=== PATIENT | female | born 1990 | race Caucasian/White ===

== ENCOUNTER 2025-08-06 16:05 | Emergency (ER) | payer BC, SELFPAY ==
--- OUTSIDE RECORDS SUMMARY | 2025-08-06 10:00 | XMS_ITS | Encounter Summary ---
Author Organization [facility] Address [address] [facility] [place] [address] Care Team Providers Care Army Ranger Name Role Phone Asha Harris ADJUNCT PSYCHOLOGY PROFESSOR-INSULATION PACKER Unavailable [phone] Reason for Visit * Reason Onset Date Comments Routine Visit Imm Inj 08/06/2025 Encounter Details Date Type Department Care Team (Late st Contact Info) Description 08/06/2025 10:00 AM REEL CUTTER visit [facility] - CIVIL ENGINEERING PROFESSOR [address] [place] [address], [address] [phone] Nathaly Severino MD [address] [place] [phone] [place]: 25w4d Social History Tobacco Use Types Packs/Day Years Used Date Smoking Tobacco: Never Passive Smoke Exposure: Never Smokeless Tobacco: Never Alcohol Use Standard Drinks/Week Comments Never 0 (1 standard drink = 0.6 oz pur e alcohol) AUDIT-C Answer Date Recorded Q1: How often do you have a drink containing alcohol? Never 08/23/2023 Q2: How many drinks containi ng alcohol do you have on a typical day when you are drinking? Patient does not drink Q3: How often do you have si x or more drinks on one occasion? Never 08/23/2023 Overall Financial Resource Strain (CARDIA) Answe r Date Recorded How hard is it for you to pa y for the very basics like food, housing, medical care, and heating? Not hard at all 08/22/2023 PHQ-2 Answer Date Recorded Patient Health Questionnaire-2 Score 0 08/06/2025 [facility] [place] of Occupat ional Health - Occupational Stress Questionnaire Answer Date Recorded Do you feel stress - tense, restless, nervous, or anxious, or unable to sleep at night because your mind is troubled all the time - these days? Not at all 08/22/2023 Hunger Vital Sign Answer Date Recorded Within the past 12 months, y ou worried that your food would run out before you got the money to buy more. Never true 08/22/20 23 Within the past 12 months, t he food you bought just didn't last and you didn't have money to get more. Never true 08/22/2023 PRAPARE - Transportation Answer Date Re corded In the past 12 months, has l ack of transportation kept you from medical appointments or from getting medications? No 02/2023 In the past 12 months, has l ack of transportation kept you from meetings, work, or from getting things needed for daily living? No 08/22/2023 Housing Stability Vital Sign Answer Giancarlo e Recorded In the last 12 months, was t here a time when you were not able to pay the mortgage or rent on time? No 08/22/2023 In the last 12 months, how many places have you lived? 2 08/22/2023 In the last 12 months, was t here a time when you did not have a steady place to sleep or slept in a usp (including now)? No 08/22/2023 [place] Depression Scale Answer Date Recorded [place] Depression Scale Total 0 08/24/2023 The thought of harming myself has occurred to me . Never 08/24/2023 Estimated Date of Delivery Comme nts Yes 11/15/2025 Based on Ultraso und Sex and Gender Information Value Date Recorded Sex Assigned at Not on file Legal Sex Female 12:55 PM REEL CUTTER Gender Identity Not on file Sexual Orientation Not on file documented as of this encounter Last Filed Vital Signs Vital Sign Reading Time Taken Comments Blood Pressure 128/64 08/06/2025 10:06 AM REEL CUTTER Pulse - - Temperature - - Respiratory Rate - - Oxygen Saturation - - Inhaled Oxygen Concentration - - Weight 67.8 kg (149 lb 6.4 oz) 08/06/2025 10:06 AM REEL CUTTER Height - - Body Mass Index 23.4 04/16/2025 2:17 PM CDT documented in this encounter Functional Status * Is person deaf or have serious hearing difficulty? Answer Date of Assessment Author No 08/22/2023 11:45 PM Merna Blanco Graduate Nurse * Is person blind or have serious difficulty seeing? Answer Date of Assessment Author No 08/22/2023 11:45 PM Merna Blanco Graduate Nurse * Does person have serious difficulty walking/climbing stairs? Answer Date of Assessment Author No 08/22/2023 11:45 PM Merna Blanco Graduate Nurse * Does person have difficulty dressing/bathing? Answer Date of Assessment Author No 08/22/2023 11:45 PM Merna Blanco Graduate Nurse * Does person have difficulty doing errands alone? Answer Date of Assessment Author No 08/22/2023 11:45 PM Merna Blanco Graduate Nurse * Over the past 2 weeks, how often have you been bothered by any of the following problems? Question Answer Date of Assessment Author Little interest or pleasure in doing things Not at all 08/06/2025 10:05 AM Batsheva Templeton Feeling down, depressed, or hopeless Not at all 08/06/2025 10:05 AM Batsheva Templeton Patient Health Questionnaire -2 Score 0 08/06/2025 10:05 AM Batsheva Templeton documented as of this encounter Mental Status * Does person have difficulty concentrating/remembering/making decisions? Answer Entry Date Author No 08/22/2023 11:45 PM Merna Blanco Graduate Nurse documented in this encounter Progress Notes * Batsheva Aguero - 08/06/2025 10:51 AM CST Flu screening checklist was reviewed with the patient. VIS was given prior to administration. Injection site aseptically cleansed and injection given per Immunization(s) protocol. See Imm/Injections activity for details. CUTTER * Nathaly Severino MD - 08/06/2025 10:11 AM CST Visit 08/06/25 S: Parris Chow is a 35 year old @ 25w4d Today she notes doing well. Notes RLS symptoms - had with last and improved with Venofer.Still having some nausea around bed time, Has medications though states not needing to take. Has been taking synthroid in AM on empty stomach with PNV at lunch. She denies contractions, bleeding, loss of fluid. She is feeling normal movement. O: Vitals: 08/06/25 1006 BP: 128/64 Weight: 67.8 kg (149 lb 6.4 oz) Total weight gain in : 7.439 kg (16 lb 6.4 oz) FHT/FH see flowsheets A/P: Parris Chow is a 35 year old at 25w4d with: Supervision of Datinw sonogram A+/I/-/-, HIV NR, HCV NR Antibody screen: negative Gc/Chl: negx2 Urine culture: negative Pap: 01/2023 NILM/HPV neg Genetic screening: NIPT: LR male Carrier screening: declines 3T labs and GCT at 28 weeks Tdap at 28 weeks Influenza vaccine: 08/06 GBS at 36-37 weeks MOF: continue to discuss MOC: continue to discuss Service Delivery Management Consultant: Delivery/ plan: discuss in 3T Ultrasounds: Anatomy complete - AGA Hypothyroidism Required synthroid in previous - did not continue as lost to f/u 04/16 TSH 8.2, fT4 0.94 > synthroid 75 mcg started 04/20 > TSH 2.9 (07/09 - was taking synthroidsuboptimally) TFTs today Iron deficiency, h/o anemia Venofer infusions planned Will recheck CBC/Fe studies after completion NVOP Declines antiemetics Has phenergan/Zofran PRN H/o SGA Serial growth US this - next with next visit Return to office in 4 weeks Nathaly Severino MD 08/06/2025 10:12 AM CUTTER documented in this encounter Plan of Treatment Upcoming Encounters Date Type Department Care Team (Late st Contact Info) Description 08/14/2025 10:30 AM REEL CUTTER Appointment [facility] [address] [place] [address] Nathaly Severino MD [facility] [address] [phone] 09/03/2025 8:30 AM REEL CUTTER OBGYN RADIOLOGY [facility] - CIVIL ENGINEERING PROFESSOR [address] [place] [address], [address] [phone] 09/03/2025 9:15 AM REEL CUTTER visit [facility] - CIVIL ENGINEERING PROFESSOR [address] [place] [phone] Nathaly Severino MD [facility] [address] [phone] documented as of this encounter Visit Diagnoses Diagnosis Need for prophylactic vaccination and inoculation against influenza- Primary documented in this encounter Care Teams Army Ranger Relationship Specialty Start Date End Date Asha Harris, ADJUNCT PSYCHOLOGY PROFESSOR-INSULATION PACKER [address] [place] [address] PCP - Attributed-BCBS Medicaid [place] 06/17/22 documented as of this encounter
--- OUTSIDE RECORDS SUMMARY | 2025-08-06 10:00 | XMS_ITS | Encounter Summary ---
Author Organization [facility] Address [address] [facility] [place] [address] Care Team Providers Care Floor Tech Name Role Phone Asha Harris AIRLINE SECURITY REPRESENTATIVE-WATER MANAGER Unavailable [phone] Reason for Visit * Reason Onset Date Comments Routine Visit Imm Inj 08/06/2025 Encounter Details Date Type Department Care Team (Late st Contact Info) Description 08/06/2025 10:00 AM HOG BUYER visit [facility] - DATA ENTRY SPECIALIST [address] [place] [address], [address] [address] Nathaly Severino MD [address] [place] [phone] [place]: 25w4d Social History Tobacco Use [...] Recorded Patient Health Questionnaire-2 Score 0 08/06/2025 [facility] [place] of Occupat ional Health - Occupational Stress [...] place to sleep or slept in a correction (including now)? No 08/22/2023 [place] Depression Scale Answer Date Recorded [place] Depression Scale Total 0 08/24/2023 The thought of harming myself has occurred to me . Never 08/24/2023 Estimated Date of Delivery Comme nts Yes 11/15/2025 Based on Ultraso und Sex and Gender Information Value Date Recorded Sex Assigned at Not on file Legal Sex Female 12:55 PM HOG BUYER Gender Identity Not on file Sexual Orientation Not on file documented as of this encounter Last Filed Vital Signs Vital Sign Reading Time Taken Comments Blood Pressure 128/64 08/06/2025 10:06 AM HOG BUYER Pulse - - Temperature - - Respiratory Rate - - Oxygen Saturation - - Inhaled Oxygen Concentration - - Weight 67.8 kg (149 lb 6.4 oz) 08/06/2025 10:06 AM HOG BUYER Height - - Body Mass Index 23.4 [...] Immunization(s) protocol. See Imm/Injections activity for details. BUYER * Nathaly Severino MD - 08/06/2025 10:11 [...] continue to discuss MOC: continue to discuss Associate Theatre Professor: Delivery/ plan: discuss in 3T Ultrasounds: Anatomy [...] weeks Nathaly Severino MD 08/06/2025 10:12 AM BUYER documented in this encounter Plan of Treatment Upcoming Encounters Date Type Department Care Team (Late st Contact Info) Description 08/14/2025 10:30 AM HOG BUYER Appointment [facility] [address] [place] [address] Nathaly Severino MD [facility] [address] [phone] 09/03/2025 8:30 AM HOG BUYER OBGYN RADIOLOGY [facility] - DATA ENTRY SPECIALIST [address] [place] [address], [address] [phone] 09/03/2025 9:15 AM HOG BUYER visit [facility] - DATA ENTRY SPECIALIST [address] [place] [phone] Nathaly Severino MD [facility] [address] [phone] documented as of this encounter Visit Diagnoses Diagnosis Need for prophylactic vaccination and inoculation against influenza- Primary documented in this encounter Care Teams Floor Tech Relationship Specialty Start Date End Date Asha Harris, AIRLINE SECURITY REPRESENTATIVE-WATER MANAGER [address] [place] [address] PCP - Attributed-BCBS Medicaid [place] 06/17/22 documented as of this encounter
--- OUTSIDE RECORDS SUMMARY | 2025-08-06 11:20 | XMS_ITS | Encounter Summary ---
Author Organization [facility] Address [address] [place] [address] Care Team Providers Care Industrial Engineering Name Role Phone Asha Harris FORENSICS ANALYST-EMPLOYMENT SECURITY OFFICER Unavailable [phone] Reason for Visit * Oncology Prior Authorization (Routine) - Authorized Specialty Diagnoses / Procedures Referred By Contac t Referred To Contact Diagnoses Iron deficiency anemia during (HCC) Procedures [place] IRON SUCROSE INJECTION Nathaly Severino MD [facility] [address] [address] Phone: tel: fax: Nathaly Severino MD [facility] [address] [address] Phone: tel: fax: Referral ID Status Reason Start Date Expiration Date V isits Requested Visits Authorized [id number] Authorized 07/24/2025 09/16/2025 1 3 Encounter Details Date Type Department Care Team (Late st Contact Info) Description 08/06/2025 11:20 AM AWNING CRAFTSPERSON Hospital Encounter [facility] [address] [facility] [address] [place] [address] Nathaly Severino MD [facility] [address] [phone] RN CALL CENTER Social History Tobacco Use Types Packs/Day Years [...] Recorded Patient Health Questionnaire-2 Score 0 08/06/2025 [facility] of Occupat ional Health - Occupational Stress [...] place to sleep or slept in a custodial (including now)? No 08/22/2023 [place] Depression Scale Answer Date Recorded [place] Depression Scale Total 0 08/24/2023 The thought of harming myself has occurred to me . Never 08/24/2023 Estimated Date of Delivery Comme nts Yes 11/15/2025 Based on Ultraso und Sex and Gender Information Value Date Recorded Sex Assigned at Not on file Legal Sex Female 12:55 PM AWNING CRAFTSPERSON Gender Identity Not on file Sexual Orientation Not on file documented as of this encounter Last Filed Vital Signs Vital Sign Reading Time Taken Comments Blood Pressure - - Pulse 76 08/06/2025 12:03 PM AWNING CRAFTSPERSON Temperature 36.3 C (97.4 F) 08/06/2025 12:03 PM AWNING CRAFTSPERSON Respiratory Rate 16 08/06/2025 12:03 PM AWNING CRAFTSPERSON Oxygen Saturation 100% 08/06/2025 12:03 PM AWNING CRAFTSPERSON Inhaled Oxygen Concentration - - Weight - - Height - - Body Mass Index - - documented in this encounter Functional Status * Is person deaf or have serious hearing difficulty? Answer Date of Assessment Author No 08/22/2023 11:45 PM AWNING CRAFTSPERSON Merna Patten Graduate Nurse * Is person blind or have serious difficulty seeing? Answer Date of Assessment Author No 08/22/2023 11:45 PM AWNING CRAFTSPERSON Merna Patten Graduate Nurse * Does person have serious [...] Entry Date Author No 08/22/2023 11:45 PM AWNING CRAFTSPERSON Merna Patten bby, Graduate Nurse documented in this encounter Progress Notes * Leatha Fleming RN - 08/06/2025 2:32 PM CST Parris Chow 1990 Patient completed scheduled Venofer [address] [facility]. Please call with any questions [phone]. Pt was observed for 30 minutes following the completion of the iron infusion. Pt noted no problems or questions. Vital signs stable. Pulse 76 Temp 97.4 ??F (36.3 ??C) Resp 16 SpO2 100% Medications iron sucrose (Venofer) 300 mg in NaCl IV 0.9 % 285 mL IVPB (0 mg Intravenous Stopped 08/06/25 1355) 0.9% NaCl injection 1-40 mL (10 mL Intracatheter $ Given 08/06/25 1356) NG CRAFTSPERSON documented in this encounter Plan of Treatment Upcoming Encounters Date Type Department Care Team (Late st Contact Info) Description 08/14/2025 10:30 AM AWNING CRAFTSPERSON Appointment [facility] [address] [place] [address] Nathaly Severino MD [address] [place] [phone] 09/03/2025 8:30 AM AWNING CRAFTSPERSON OBGYN RADIOLOGY [facility] - RN CALL CENTER [address] [place] [phone] 09/03/2025 9:15 AM AWNING CRAFTSPERSON visit [facility] - RN CALL CENTER [address] [place] [phone] Nathaly Severino MD [address] [place] [phone] documented as of this encounter Visit Diagnoses Diagnosis Iron deficiency anemia during (HCC)- Primary documented in this encounter Administered Medications Active Administered Medications - up to 3 most recent administrations Medication Order MAR Action Action Date Dose Rate Site 0.9% NaCl injection 1-40 mL 1-40 mL, Intracatheter, PRN, other, vascular access device flush, Starting on Aliza 08/06/25 at 1210, Until Sun08/07/25 at 0009, For Port-a-Cath, Central Line, and PICC, flush with 10ml prior to and after each use and flush with 20ml after blood draws.Indications:Iron deficiency anemia during (HCC) $ Given 08/06/2025 1:56 PM AWNING CRAFTSPERSON 10 mL iron sucrose (Venofer) 300 mg in NaCl IV 0.9 % 285 mL IVPB 300 mg, at 190 mL/hr, Intravenous, DIRECTED, 3 doses, Starting on Aliza 08/06/25 at 1210, Until Discontinued, Observe for signs and symptoms of hypersensitivity during and after iron sucrose administration for at least 30 minutes and until clinically stable following completion of each administration.Indications:I anastacio deficiency anemia during (HCC) $ New Bag/Syringe 08/06/2025 12:25 PM AWNING CRAFTSPERSON 300 mg 190 mL/hr documented in this encounter Care Teams Industrial Engineering Relationship Specialty Start Date End Date Asha Harris APRN-EMPLOYMENT SECURITY OFFICER [address] [place], [place] [phone] PCP - Attributed-BCBS Medicaid [place] 06/17/22 documented as of this encounter
--- OUTSIDE RECORDS SUMMARY | 2025-08-06 11:20 | XMS_ITS | Encounter Summary ---
Author Organization [facility] Address [address] [facility] [place] [address] Care Team Providers Care Sales Technician Home Theater Name Role Phone Asha Harris PRIVACY SPECIALIST-BILLING REPRESENTATIVE Unavailable [phone] Reason for Visit * Oncology Prior Authorization (Routine) - Authorized Specialty Diagnoses / Procedures Referred By Contac t Referred To Contact Diagnoses Iron deficiency anemia during (HCC) Procedures [place] IRON SUCROSE INJECTION Nathaly Severino MD [facility] [address] [address] Phone: tel: fax: Nathaly Severino MD [facility] [address] [address] Phone: tel: fax: Referral ID Status Reason Start Date Expiration Date V isits Requested Visits Authorized [id number] Authorized 07/24/2025 09/16/2025 1 3 Encounter Details Date Type Department Care Team (Late st Contact Info) Description 08/06/2025 11:20 AM ROBOTICS TECHNOLOGIST Hospital Encounter [facility] [address] [facility] [address] [place] [address] Nathaly Severino MD [facility] [address] [address] PRE ASSEMBLY WIRER Social History Tobacco Use Types Packs/Day Years [...] Recorded Patient Health Questionnaire-2 Score 0 08/06/2025 [facility] of Occupat ional Health - Occupational Stress [...] place to sleep or slept in a assisted (including now)? No 08/22/2023 [place] Depression Scale Answer Date Recorded [place] Depression Scale Total 0 08/24/2023 The thought of harming myself has occurred to me . Never 08/24/2023 Estimated Date of Delivery Comme nts Yes 11/15/2025 Based on Ultraso und Sex and Gender Information Value Date Recorded Sex Assigned at Not on file Legal Sex Female 12:55 PM ROBOTICS TECHNOLOGIST Gender Identity Not on file Sexual Orientation Not on file documented as of this encounter Last Filed Vital Signs Vital Sign Reading Time Taken Comments Blood Pressure - - Pulse 76 08/06/2025 12:03 PM ROBOTICS TECHNOLOGIST Temperature 36.3 C (97.4 F) 08/06/2025 12:03 PM ROBOTICS TECHNOLOGIST Respiratory Rate 16 08/06/2025 12:03 PM ROBOTICS TECHNOLOGIST Oxygen Saturation 100% 08/06/2025 12:03 PM ROBOTICS TECHNOLOGIST Inhaled Oxygen Concentration - - Weight - - Height - - Body Mass Index - - documented in this encounter Functional Status * Is person deaf or have serious hearing difficulty? Answer Date of Assessment Author No 08/22/2023 11:45 PM ROBOTICS TECHNOLOGIST Merna Patten Graduate Nurse * Is person blind or have serious difficulty seeing? Answer Date of Assessment Author No 08/22/2023 11:45 PM ROBOTICS TECHNOLOGIST Merna Patten Graduate Nurse * Does person [...] Entry Date Author No 08/22/2023 11:45 PM ROBOTICS TECHNOLOGIST Merna Patten bby, Graduate Nurse documented in this encounter Progress Notes * Leatha Fleming RN - 08/06/2025 2:32 PM CST Parris Chow 1990 Patient completed scheduled Venofer 300 at [facility]. Please call with any questions [phone]. Pt was observed for 30 minutes following [...] (10 mL Intracatheter $ Given 08/06/25 1356) TICS TECHNOLOGIST documented in this encounter Plan of Treatment Upcoming Encounters Date Type Department Care Team (Late st Contact Info) Description 08/14/2025 10:30 AM ROBOTICS TECHNOLOGIST Appointment [facility] [address] [place] [address] Nathaly Severino MD [address] [place] [phone] 09/03/2025 8:30 AM ROBOTICS TECHNOLOGIST OBGYN RADIOLOGY [facility] - PRE ASSEMBLY WIRER [address] [place] [phone] 09/03/2025 9:15 AM ROBOTICS TECHNOLOGIST visit [facility] - PRE ASSEMBLY WIRER [address] [place] [phone] Nathaly Severino MD [address] [place] [phone] documented as of this encounter Visit [...] during (HCC) $ Given 08/06/2025 1:56 PM ROBOTICS TECHNOLOGIST 10 mL iron sucrose (Venofer) 300 mg [...] (HCC) $ New Bag/Syringe 08/06/2025 12:25 PM ROBOTICS TECHNOLOGIST 300 mg 190 mL/hr documented in this encounter Care Teams Sales Technician Home Theater Relationship Specialty Start Date End Date Asha Harris APRN-BILLING REPRESENTATIVE [address] [place], [place] [phone] PCP - Attributed-BCBS Medicaid [place] 06/17/22 documented as of this encounter
[2025-08-06 16:19] VITALS: BP 126/75; PULSE 81; RESP 18; TEMP 36.6; O2SAT 100
--- NOTE | 2025-08-06 16:42 | ECG_ITS ---
Test Date: 2025-08-06 17:42:06 Measurements Intervals [place] Rate: 64 P: 55 [place]: 165 QRS: 58 QRSD: 88 T: 31 QT: 402 QTc: 416 Interpretive Statements SINUS RHYTHM NORMAL ELECTROCARDIOGRAM No previous ECG available for comparison Electronically Signed On 08-07-2025 07:51:31 WHITEWATER RAFTING GUIDE by Jasmeet Rosales M.D.
--- NOTE | 2025-08-06 16:42 | ED.WEAKNESS ---
HPI - Weakness General Chief complaint: Weakness <DILLON De Luna Last Filed: 08/06/25 16:44> Stated complaint: numbness in legs and arms <DILLON De Luna Last Filed: 08/06/25 16:44> Time Seen by Provider: 08/06/25 16:42 <DILLON De Luna Last Filed: 08/06/25 16:44> Focused HPI: Patient is a 35-year-old female who presents the ED with report of weakness of her extremities. Patient reports she had a flu shot today around 10 30. She then received an iron infusion around 2. She has received these in the past. Notes history of frequent anemia, particularly while . She is currently 25 weeks gestation. States around 230-3 p.m., she began feeling weak throughout her lower extremities. States it has progressed to her upper extremities. She states her arms and legs feel very heavy and tingly. States it is the same bilaterally. Patient denies abdominal pain or vaginal bleeding. Is still feeling baby move. GENERAL: Well-appearing, well-nourished, and in no acute distress. HEAD: Normocephalic, atraumatic. CHEST: Clear to auscultation. ?No respiratory distress. HEART: Regular rate and rhythm.? NEURO: ?Alert and oriented x3. Strength 4/5 in upper and lower extremities bilaterally. Symmetric bilaterally. Strong octave board racker strength bilaterally. No appreciable pronator drift Patient screened in triage and initial orders placed.? ?Additional care and disposition to be based upon?diagnostic testing and treatment. <DILLON De Luna Last Filed: 08/06/25 16:44> Source: patient <DILLON De Luna Last Filed: 08/06/25 16:44> Mode of arrival: ambulatory <DILLON De Luna Last Filed: 08/06/25 16:44> Limitations: no limitations <DILLON De Luna Last Filed: 08/06/25 16:44> History of Present Illness HPI Narrative: Agree with above HPI. <MARYJANE Ac Last Filed: 08/06/25 22:41> Related Data Allergies/Adverse reactions: Allergies Allergy/AdvReac Type Severity Reaction Status Date / Time Penicillins Allergy Unknown Rash Verified 08/06/25 19:44 <Yojana Weaver PA-C - Last Filed: 08/06/25 16:44> Review of Systems Review of Systems: All systems reviewed & are unremarkable except as noted in HPI and below <MARYJANE Ac - Last Filed: 08/06/25 22:41> Exam Narrative: GENERAL: Well-appearing, well-nourished, and in no acute distress. HEAD: Normocephalic, atraumatic. EYES: PERRLA and EOMI. ENT: Nares clear, no rhinorrhea or epistaxis. Mucous membranes moist. Oropharynx without tonsillar hypertrophy exudate or other lesions. Bilateral TMs pearly asif non-bulging NECK: Supple. No adenopathy or masses. No carotid bruits or JVD CHEST: Clear to auscultation. No respiratory distress. No wheezes rales or rhonchi HEART: Regular rate and rhythm. No murmur heard. Normal peripheral pulses. ABDOMEN: Soft, nontender, nondistended, normal active bowel sounds. EXTREMITIES: Normal range of motion. No edema. SKIN: Warm, dry, no rash. NEURO: A&O X3. Speech clear. Follows commands. CN II-XII intact. Sensation grossly intact. Steady gait. No ataxic movements. Strength 5/5 in upper and lower extremities bilaterally. [id number] testing intact bilaterally. No pronator drift. PSYCH: Normal mood and affect <MARYJANE Ac - Last Filed: 08/06/25 22:41> Course Vital Signs Vital signs: Vital Signs Temperature 97.8 F 08/06/25 16:19 Pulse Rate 81 08/06/25 16:19 Respiratory Rate 18 08/06/25 16:19 Blood Pressure 126/75 08/06/25 16:19 Pulse Oximetry 100 08/06/25 16:19 Oxygen Delivery Room Air 08/06/25 16:19 Temperature 97.8 F 08/06/25 16:19 Pulse Rate 73 08/06/25 21:31 Respiratory Rate 14 08/06/25 21:31 Blood Pressure 119/63 08/06/25 21:31 Pulse Oximetry 98 08/06/25 21:31 Oxygen Delivery Room Air 08/06/25 18:40 <Yojana Weaver PA-C - Last Filed: 08/06/25 16:44> Vital Signs Temperature 97.8 F 08/06/25 16:19 Pulse Rate 81 08/06/25 16:19 Respiratory Rate 18 08/06/25 16:19 Blood Pressure 126/75 08/06/25 16:19 Pulse Oximetry 100 08/06/25 16:19 Oxygen Delivery Room Air 08/06/25 16:19 Temperature 97.8 F 08/06/25 16:19 Pulse Rate 73 08/06/25 21:31 Respiratory Rate 14 08/06/25 21:31 Blood Pressure 119/63 08/06/25 21:31 Pulse Oximetry 98 08/06/25 21:31 Oxygen Delivery Room Air 08/06/25 18:40 <MARYJANE Ac Last Filed: 08/06/25 22:41> MDM - Weakness MDM Narrative Medical decision making narrative: MSE by AMINATA in triage <Yojana Weaver PA-C - Last Filed: 08/06/25 16:44> MSE by AMINATA in triage Patient is a 35-year-old female who presents the ED with report of weakness of her extremities. Patient reports she had a flu shot today around 10 30. She then received an iron infusion around 2. She has received these in the past. Notes history of frequent anemia, particularly while . She is currently 25 weeks gestation. States around 230-3 p.m., she began feeling weak throughout her lower extremities. States it has progressed to her upper extremities. She states her arms and legs feel very significant and tingly. States it is the same bilaterally. Upon my initial assessment sitting comfortably in bed reporting that her symptoms have vastly improved. Neuro exam intact with much improvement in extremity strength. Patient is not exhibiting any other signs of allergic reaction including no shortness of breath, tongue swelling, or trouble swallowing. Labs and EKG are without significant high-risk changes. Patient reports that she is feeling plenty of movement. heart rate 159. Fluids administered. All questions were answered to the patient's satisfaction. The patient is appropriate for outpatient treatment and follow-up. Given reasons to return. <MARYJANE Ac - Last Filed: 08/06/25 22:41> Medical Records Attestation: I reviewed the patient's medical records. <MARYJANE Ac - Last Filed: 08/06/25 22:41> Lab Data Attestation: I reviewed the patient's lab results. <MARYJANE Ac - Last Filed: 08/06/25 22:41> Result diagrams: 08/06/25 17:04 08/06/25 17:04 <Yojana Weaver PA-C - Last Filed: 08/06/25 16:44> Labs: Lab Results 08/06/25 Range/Units 17:04 WBC 10.1 H (4.5-10.0) K/mm3 RBC 3.50 L (4.2-5.4) M/mm3 Hgb 10.3 L (12.0-15.0) g/dL Hct 30.3 L (37.0-47.0) % MCV 86.6 (80-100) fl MCH 29.4 (26-34) pg MCHC 34.0 (32-36) g/dl RDW 12.9 (11.5-14.5) % Plt Count 323 (150-375) k/mm3 MPV 10.3 (7.4-10.4) fl Immature Gran % (Auto) 0.8 H (0-0.5) % Neut % (Auto) 68.0 (45.5-73.1) % Lymph % (Auto) 21.3 (18.3-44.2) % [place] % (Auto) 8.7 H (2.6-8.5) % Eos % (Auto) 0.7 (0-4.4) % Baso % (Auto) 0.5 (0.2-1.2) % Lymph # (Auto) 2.16 (0.9-3.2) K/mm3 [place] # (Auto) 0.9 H (0.1-0.6) K/mm3 Eos # (Auto) 0.1 (0-0.3) K/mm3 Baso # (Auto) 0.1 (0.0-0.1) K/mm3 Abs Immat Gran (auto) 0.08 H (0.00-0.031) K/mm3 Absolute Neuts (auto) 6.9 H (1.3-6.7) K/mm3 Absolute Nucleated RBC 0.000 (0.0-0.012) K/mm3 Nucleated RBC % 0.0 (0.0-0.2) % PT 13.0 (11.1-14.7) Seconds INR 1.0 APTT 30.0 (22.3-36.8) Seconds Sodium 133 L (137-145) mmol/L Potassium 3.8 (3.4-5.0) mmol/L Chloride 104 (98-107) mmol/L Carbon Dioxide 21 L (22-30) mmol/L Anion Gap 8 (4-12) mmol/L BUN 8 (7-17) mg/dL Creatinine 0.55 L (0.7-1.0) mg/dL Estim Creat Clear Calc 119 ml/min Estimated GFR > 60 (59 - ) Glucose 92 (65-110) mg/dL Lactic Acid 0.9 (0.7-2.0) mmol/L Calcium 8.5 (8.4-10.2) mg/dL Magnesium 1.8 (1.6-2.3) mg/dL Total Bilirubin 0.6 (0.2-1.3) mg/dL AST 23 (14-36) U/L ALT 12 (6-35) U/L Alkaline Phosphatase 84 (38-126) U/L Total Creatine Kinase 64 (30-135) U/L Total Protein 7.3 (6.3-8.2) g/dL Albumin 3.8 (3.5-5.1) g/dL <Yojana Weaver PA-C - Last Filed: 08/06/25 16:44> Lab Results 08/06/25 Range/Units 17:04 WBC 10.1 H (4.5-10.0) K/mm3 RBC 3.50 L (4.2-5.4) M/mm3 Hgb 10.3 L (12.0-15.0) g/dL Hct 30.3 L (37.0-47.0) % MCV 86.6 (80-100) fl MCH 29.4 (26-34) pg MCHC 34.0 (32-36) g/dl RDW 12.9 (11.5-14.5) % Plt Count 323 (150-375) k/mm3 MPV 10.3 (7.4-10.4) fl Immature Gran % (Auto) 0.8 H (0-0.5) % Neut % (Auto) 68.0 (45.5-73.1) % Lymph % (Auto) 21.3 (18.3-44.2) % [place] % (Auto) 8.7 H (2.6-8.5) % Eos % (Auto) 0.7 (0-4.4) % Baso % (Auto) 0.5 (0.2-1.2) % Lymph # (Auto) 2.16 (0.9-3.2) K/mm3 [place] # (Auto) 0.9 H (0.1-0.6) K/mm3 Eos # (Auto) 0.1 (0-0.3) K/mm3 Baso # (Auto) 0.1 (0.0-0.1) K/mm3 Abs Immat Gran (auto) 0.08 H (0.00-0.031) K/mm3 Absolute Neuts (auto) 6.9 H (1.3-6.7) K/mm3 Absolute Nucleated RBC 0.000 (0.0-0.012) K/mm3 Nucleated RBC % 0.0 (0.0-0.2) % PT 13.0 (11.1-14.7) Seconds INR 1.0 APTT 30.0 (22.3-36.8) Seconds Sodium 133 L (137-145) mmol/L Potassium 3.8 (3.4-5.0) mmol/L Chloride 104 (98-107) mmol/L Carbon Dioxide 21 L (22-30) mmol/L Anion Gap 8 (4-12) mmol/L BUN 8 (7-17) mg/dL Creatinine 0.55 L (0.7-1.0) mg/dL Estim Creat Clear Calc 119 ml/min Estimated GFR > 60 (59 - ) Glucose 92 (65-110) mg/dL Lactic Acid 0.9 (0.7-2.0) mmol/L Calcium 8.5 (8.4-10.2) mg/dL Magnesium 1.8 (1.6-2.3) mg/dL Total Bilirubin 0.6 (0.2-1.3) mg/dL AST 23 (14-36) U/L ALT 12 (6-35) U/L Alkaline Phosphatase 84 (38-126) U/L Total Creatine Kinase 64 (30-135) U/L Total Protein 7.3 (6.3-8.2) g/dL Albumin 3.8 (3.5-5.1) g/dL <MARYJANE Ac Last Filed: 08/06/25 22:41> Discharge Plan Discharge Clinical Impression: Weakness <DILLON De Luna Last Filed: 08/06/25 16:44> Patient Disposition: Home <DILLON De Luna Last Filed: 08/06/25 16:44> Condition: Stable <DILLON De Luna Last Filed: 08/06/25 16:44> Instructions: Weakness (ED) <DILLON De Luna Last Filed: 08/06/25 16:44> Additional Instructions: Return to the emergency department if you experience fever, chest pain, shortness of breath, abdominal pain with nausea and vomiting, weakness, numbness/tingling, or any other symptoms that are concerning to you. Follow up with primary care doctor. <DILLON De Luna Last Filed: 08/06/25 16:44> Patient Language: Macanese <DILLON De Luna Last Filed: 08/06/25 16:44> Follow-up/Referrals: PHYSICIAN NOT ON STAFF,NONSTAFF [Non-Staff] <DILLON De Luna Last Filed: 08/06/25 16:44>
[2025-08-06 17:12] LABS: Hematocrit 30.3 % (37.0-47.0); Hemoglobin 10.3 g/dL (12.0-15.0); Immature Granulocyte Percent A 0.8 % (0-0.5); Lymphocytes Absolute Auto 2.16 K/mm3 (0.9-3.2); Mean Corpuscular HGB Conc 34.0 g/dl (32-36); Mean Corpuscular Hemoglobin 29.4 pg (26-34); Mean Corpuscular Volume 86.6 fl (80-100); Nucleated Red Blood Cells Absolute Auto 0.000 K/mm3 (0.0-0.012); Nucleated Red Blood Cells Perc 0.0 % (0.0-0.2); Platelet Count Result 323 k/mm3 (150-375); Red Blood Count 3.50 M/mm3 (4.2-5.4); White Blood Count 10.1 K/mm3 (4.5-10.0)
[2025-08-06 17:25] LABS: INR 1.0; Partial Thromboplastin Time 30.0 Seconds (22.3-36.8); Prothrombin Time 13.0 Seconds (11.1-14.7)
[2025-08-06 17:32] LABS: Alanine Aminotransferase 12 U/L (6-35); Albumin Level 3.8 g/dL (3.5-5.1); Alkaline Phosphatase 84 U/L (38-126); Anion Gap 8 mmol/L (4-12); Aspartate Amino Transferase 23 U/L (14-36); Bilirubin,Total 0.6 mg/dL (0.2-1.3); Blood Urea Nitrogen 8 mg/dL (7-17); Calcium 8.5 mg/dL (8.4-10.2); Carbon Dioxide 21 mmol/L (22-30); Chloride 104 mmol/L (98-107); Creatine Kinase 64 U/L (30-135); Estimated CRCL calculation 119 ml/min; Estimated Glomerular Filt Rate > 60; Glucose 92 mg/dL (65-110); Magnesium 1.8 mg/dL (1.6-2.3); Potassium 3.8 mmol/L (3.4-5.0); Sodium 133 mmol/L (137-145); Total Protein 7.3 g/dL (6.3-8.2)
--- OUTSIDE RECORDS SUMMARY | 2025-08-06 18:15 | XMS_ITS | Encounter Summary ---
Author Organization [facility] Health Address [address] [place] [address] Care Team Providers Care Interior Decorator Painting Name Role Phone Asha Harris TV TECHNICIAN-TICKET CLERK Unavailable [phone] Encounter Details Date Type Department Care Team (Latest Contact Info) Description 08/06/2025 Travel Social History Tobacco Use Types Packs/Day Years [...] Recorded Patient Health Questionnaire-2 Score 0 08/06/2025 [facility] [place] of Occupat ional Health - Occupational Stress [...] place to sleep or slept in a group home (including now)? No 08/22/2023 [place] Depression Scale Answer Date Recorded [place] Depression Scale Total 0 08/24/2023 The thought of harming myself has occurred to me . Never 08/24/2023 Estimated Date of Delivery Comme nts Yes 11/15/2025 Based on Ultraso und Sex and Gender Information Value Date Recorded Sex Assigned at Not on file Legal Sex Female 12:55 PM PLY BANDER Gender Identity Not on file Sexual Orientation Not on file documented as of this encounter Functional Status * Is person [...] Assessment Author No 08/22/2023 11:45 PM Merna Blanco, Graduate Nurse * Over the past 2 [...] Date Author No 08/22/2023 11:45 PM Merna Blanco, Hussein Nurse documented in this encounter Plan of Treatment Upcoming Encounters Date Type Department Care Team (Late st Contact Info) Description 08/14/2025 10:30 AM PLY BANDER Appointment [facility] [address] [place] [phone] Nathaly Severino MD [address] [place], [place] [phone] 09/03/2025 8:30 AM PLY BANDER OBGYN RADIOLOGY [facility] - AMERICAN HISTORY TEACHER [address] [place] [phone] 09/03/2025 9:15 AM PLY BANDER visit [facility] - AMERICAN HISTORY TEACHER [address] [place] [phone] Nathaly Severino MD [address] [place] [phone] documented as of this encounter Visit Diagnoses Not on filedocumented in this encounter Care Teams Interior Decorator Painting Relationship Specialty Start Date End Date Asha Harris APRN-TICKET CLERK [address] [place] [phone] PCP - Attributed-[employer] Medicaid [place] 10/1/22 documented as of this encounter
--- OUTSIDE RECORDS SUMMARY | 2025-08-06 18:15 | XMS_ITS | Encounter Summary ---
Author Organization [facility] Address [address] [place] [address] Care Team Providers Care Judge Name Role Phone Asha Harris CERTIFIED FAMILY MEDIATOR-SATELLITE DISH REPAIRER Unavailable [phone] Reason for Visit * Reason Onset Date Comments Numbness 08/06/2025 Weakness Extremity 08/06/2025 Encounter Details Date Type Department Care Team (Late st Contact Info) Description 08/06/2025 Telephone [facility] Medical [facility] - MINE ANALYST [address] [place] [address], [address] [place] [phone] Nathaly Severino MD [address] [place] [phone] Numbness; Weakness Extremity Social History Tobacco Use Types Packs/Day Years [...] Recorded Patient Health Questionnaire-2 Score 0 08/06/2025 [facility] of Occupat ional Health - Occupational Stress [...] place to sleep or slept in a ch[facility] (including now)? No 08/22/2023 [place] Depression Scale Answer Date Recorded [place] Depression Scale Total 0 08/24/2023 The thought of harming myself has occurred to me . Never 08/24/2023 Estimated Date of Delivery Comme nts Yes 11/15/2025 Based on Ultraso und Sex and Gender Information Value Date Recorded Sex Assigned at Not on file Legal Sex Female 12:55 PM FREE LANCE MODEL Gender Identity Not on file Sexual Orientation Not on file documented as of this encounter Functional Status * Is person deaf or have serious hearing difficulty? Answer Date of Assessment Author No 08/22/2023 11:45 PM FREE LANCE MODEL Merna Patten, Graduate Nurse * Is person blind or [...] of Assessment Author No 08/22/2023 11:45 PM FREE LANCE MODEL Merna Patten Graduate Nurse * Over the past 2 [...] Blanco Graduate Nurse documented in this encounter Miscellaneous Notes * Telephone Encounter - Tanna Montano RN - 08/06/2025 3:25 PM CST Pt calls with c/o numbness in her hands, difficulty making a fist and weakness in her arms and legs. She completed a Venofer infusion earlier today. Instructed to go to hospital for evaluation. LANCE MODEL documented in this encounter Plan of Treatment Upcoming Encounters Date Type Department Care Team (Late st Contact Info) Description 08/14/2025 10:30 AM FREE LANCE MODEL Appointment [facility] [address] [phone] Nathaly Severino MD [address] [facility] [place] [phone] 09/03/2025 8:30 AM FREE LANCE MODEL OBGYN RADIOLOGY [facility] - MINE ANALYST [address] [place] [address], [address] [place] [phone] 09/03/2025 9:15 AM FREE LANCE MODEL visit [facility] - MINE ANALYST [address] [place] [address], [address] [phone] Nathaly Severino MD [address] [place] [address] [phone] documented as of this encounter Visit Diagnoses Not on filedocumented in this encounter Care Teams Judge Relationship Specialty Start Date End Date Asha Harris APRN-SATELLITE DISH REPAIRER [address] [place] [phone] PCP - Attributed-[employer] Medicaid [place] 06/17/22 documented as of this encounter
--- OUTSIDE RECORDS SUMMARY | 2025-08-06 18:15 | XMS_ITS | Clinical Summary ---
Author Organization [facility] Address [address] [facility] [place] [address] Care Team Providers Care Methods Engineer Name Role Phone Asha Harris DAX-FRAMING MANAGER Unavailable [phone] Source Comments [facility],non-owned Affiliates and Associated Physician Practices is amultiple site organization consisting of ambulatory clinics and hospital sitesin [place] and [place]. This disclosure is being madepursuant to the Care Everywhere program and may not contain all information available regarding this patient. Last updated 18.[facility] Allergies Active Allergy Reactions Criticality Noted Date Comments Penicillins Unknown Medium 10/25/2016 Unsure of reaction, childhood allergy Medications * Be aware that medications may not be up to date on this document. Alwaysverify current medications with the patient. Vit-Fe Fumarate-FA ( plus) 27-1 MG tabletIndication s:Visit for confirmation of test result with physical exam Take 1 (one) tablet by mouth once daily 30 tablet 11 01/17/20 23 Active ondansetron, disintegrating, (Zofran ODT) 4 MG tablet Take 1 (one) tablet by mouth every 6 hours as needed for Nausea/Vomiting Allow tablet to dissolve on the tongue 60 tablet 2 04/16/20 25 Active Additional Information Patient not taking.Reported on 07/09/2025 levothyroxine (Synthroid) 75 MCG tablet Take 1 (one) tablet by mouth once daily 60 tablet 04/20/20 25 Active ferrous sulfate 325 (65 FE) MG tabletIndication s:Iron deficiency Take 1 (one) tablet by mouth daily with breakfast 90 tablet 3 04/20/20 Active Additional Information Patient not taking.Reported on 07/09/2025 docusate sodium (Colace) 100 MG capsule Take 1 (one) capsule by mouth once daily 90 capsule 3 04/20/20 25 Active Additional Information Patient not taking.Reported on 07/09/2025 promethazine (Phenergan) 25 MG tablet Take 1 (one) tablet by mouth every 6 hours as needed for Nausea/Vomiting 60 tablet 3 04/16/20 025 Discontin ued(List Clean-Up) Active Problems Problem Noted Date Diagnosed Date Other specified hypothyroidism 08/24/2023 Normal labor and delivery 08/24/2023 38 weeks gestation of 08/11/2023 Iron deficiency anemia during 07/16/20 Estimated Date of Delivery Comme nts Yes 11/15/2025 Based on Ultraso und Resolved Problems Problem Noted Date Diagnosed Date Resolved Date 39 weeks gestation of 08/22/2023 08/24/2023 Hypothyroidism during , antepartum 08/22/2023 08/24/2023 Encounters Date Type Department Care Team Description 08/06/2025 11:20 AM [facility] Hospital Encounter [facility] [address] [address] Nathaly Severino MD FERMENTATION OPERATOR 08/06/2025 10:00 AM OVEN EQUIPMENT REPAIRER visit [facility] - FERMENTATION OPERATOR [address] [place] [address], [address] [phone] Nathaly Severino MD [place]: 25w4d 08/06/2025 Telephone [facility] - FERMENTATION OPERATOR [address] [place] [address], [address] [place] [phone] Nathaly Severino MD Numbness; Weakness Extremity 08/06/2025 Travel 07/27/2025 10:23 AM OVEN EQUIPMENT REPAIRER - 07/27/2025 11:59 PM OVEN EQUIPMENT REPAIRER Hospital [facility] - [facility] [place] [address] Margoth Mendieta MD Discharge Disposition: Home or Self Care 07/24/2025 Orders Only [facility] - FERMENTATION OPERATOR [address] [place] [address], [address] [place] [phone] Nathaly Sevreino MD 07/23/2025 Results Follow-Up [facility] FERMENTATION OPERATOR [address] [place] [address], [address] [place] [phone] Nathaly Severino MD 07/09/2025 9:15 AM CDT visit [facility] FERMENTATION OPERATOR [address] [place] [address], [address] [place] [phone] Nathaly Severino MD GA: 21w4d 07/09/2025 Travel 06/29/2025 10:30 AM CDT - 06/29/2025 11:59 PM CDT Hospital Encounter [facility] - Maternal [address] [place] [address] Margoth Mendieta MD Discharge Disposition: Home or Self Care 06/11/2025 11:00 AM CDT visit [facility] FERMENTATION OPERATOR [address] [place] [address], [address] [place] [phone] Nathaly Severino MD GA: 17w4d 06/11/2025 Travel 05/25/2025 Telephone [facility] - FERMENTATION OPERATOR [address] [place] [address], [address] [phone] Nathaly Severino MD [facility] 05/14/2025 9:30 AM CDT visit [facility] - FERMENTATION OPERATOR [address] [place] [address], [address] [place] [phone] Nathaly Severino MD GA: 13w4d 05/14/2025 Travel from Last 3 Months Immunizations Immunization Administration Dates Next Due INFLUENZA VACCINE, TRIV. (FL UZONE; FLULAVAL; FLUARIX; AFLURIA TRIVALENT; 6MO+), 0.5 ML (IIV3) 08/06/2025 MMR 08/24/2023 TDAP (7yrs+) 05/29/2023 Family History Medical History Relation Name Comments Cancer - Breast Neg Hx Cancer - Colon Neg Hx Cancer - Ovarian Neg Hx Cancer - Uterine Neg Hx Social History Tobacco Use Types Packs/Day Years Used Date Smoking Tobacco: Never Passive Smoke Exposure: Never Smokeless Tobacco: Never Tobacco Cessation:Counseling Given: Not Answered Alcohol Use Standard Drinks/Week Comments Never 0 [...] Recorded Patient Health Questionnaire-2 Score 0 08/06/2025 [facility] - Occupational Stress [...] place to sleep or slept in a [facility] (including now)? No 08/22/2023 [place] Depression Scale Answer Date Recorded [place] Depression Scale Total 0 08/24/2023 The thought of harming myself has occurred to me . Never 08/24/2023 Estimated Date of Delivery Comme nts Yes 11/15/2025 Based on Ultraso und Sex and Gender Information Value Date Recorded Sex Assigned at Not on file Legal Sex Female 12:55 PM OVEN EQUIPMENT REPAIRER Gender Identity Not on file Sexual Orientation Not on file Last Filed Vital Signs Vital Sign Reading Time Taken Comments Blood Pressure 128/64 08/06/2025 10:06 AM OVEN EQUIPMENT REPAIRER Pulse 76 08/06/2025 12:03 PM OVEN EQUIPMENT REPAIRER Temperature 36.3 C (97.4 F) 08/06/2025 12:03 PM OVEN EQUIPMENT REPAIRER Respiratory Rate 16 08/06/2025 12:03 PM OVEN EQUIPMENT REPAIRER Oxygen Saturation 100% 08/06/2025 12:03 PM OVEN EQUIPMENT REPAIRER Inhaled Oxygen Concentration - - Weight 67.8 kg (149 lb 6.4 oz) 08/06/2025 10:06 AM OVEN EQUIPMENT REPAIRER Height 170.2 cm (5' 7) 04/16/2025 2:17 PM CDT Body Mass Index 23.4 04/16/2025 2:17 PM CDT Plan of Treatment Upcoming Encounters Date Type Department Care Team (Late st Contact Info) Description 08/14/2025 10:30 AM OVEN EQUIPMENT REPAIRER Appointment [facility] [place] [address] [place] [address] Natahly Severino MD [address] [place] [phone] 09/03/2025 8:30 AM OVEN EQUIPMENT REPAIRER OBGYN RADIOLOGY [facility] - FERMENTATION OPERATOR [address] [place] [address], [address] [place] [phone] 09/03/2025 9:15 AM OVEN EQUIPMENT REPAIRER visit [facility] - FERMENTATION OPERATOR [address] [place] [address], [address] [place] [address] Nathaly Severino MD [address] [place] [address] [address] [place] [address] Health Maintenance Due Date Last Done Comments HEPATITIS B VACCINE (1 of 3 - 19+ 3-dose series) 2011 HPV VACCINE (1 - 3-dose SCDM series) 2019 COVID-19 VACCINE (1 - 2024-2 6 season) 2025 OB-ONE HOUR GLUCOSE 08/09/2025 05/29/2023 OB-TDAP CURRENT 08/16/20252022, 03/12/2018 Respiratory Syncytial Virus (RSV) Vaccine Pt: or over 60 yrs (1 - Risk 1-dose series) 09/20/2025 OB-GROUP B STREP SCREEN 10/11/2025 07/26/20, 07/24/2016 PAP SMEAR 01/16/2026 01/16/2023, 01/16/2023 Cervical Cancer Screening 01/17/2028 PAP with HPV 01/17/2028 01/16/2023 DTAP/TDAP/TD VACCINES (2 - T d or Tdap) 05/29/2033 05/29/2023 ZOSTER VACCINE (1 of 2) 2042 HEPATITIS C SCREENING Completed 04/16/2025 , 01/16/2023 HIV SCREENING Completed 04/16/2025, 01/16/2023 DEPRESSION SCREENING Completed 08/06/2025, 02/27/2023 INFLUENZA VACCINE Completed 08/06/2025 HIB VACCINE Aged Out No longer eligi ble based on patient's age to complete this topic MENINGOCOCCAL (Group B) VACCINE SHARED DECISION-MAKING Aged Out No longer eligible based on patient's age to complete this topic MENINGOCOCCAL GROUPS A/C/Y/W VACCINE Aged Out No longer eligible b ased on patient's age to complete this topic PNEUMOCOCCAL VACCINE Aged Out No long er eligible based on patient's age to complete this topic Procedures Procedure Name Priority Date/Time Associated Diagnosis Comments SONOGRAM - COMPLETE Routine 07/27/2025 1 0:28 AM OVEN EQUIPMENT REPAIRER 24 weeks gestation of ([facility]) Supervision of low-risk first , unspecified trimester ([facility]) Encounter for follow-up ultrasound of anatomy ([facility]) Encounter for ultrasound to assess growth ([facility]) Other specified hypothyroidism IRON + TIBC + FERRITIN Routine 07/09/2025 9:43 AM CDT Iron deficiency CBC W AUTO DIFFERENTIAL Routine 07/09/2025 9:43 AM CDT Iron deficiency TSH HI LOW REFLEX FREE T4 Routine 07/09/2025 9:42 AM CDT Hypothyroidism affecting in second trimester ([facility]) SONOGRAM - COMPLETE Routine 06/29/2025 1 0:29 AM CDT Encounter for supervision of other normal in first trimester ([facility]) OBSTETRIC PANEL RFLX CONFIRM (W CT/GC/UA) Routine 04/16/2025 3:14 PM CDT Encounter for supervision of other normal in first trimester ([facility]) CULTURE STREP B Routine 07/26/2023 2:37 PM OVEN EQUIPMENT REPAIRER 36 weeks gestation of GLUCOSE CHALLENGE Routine 05/29/2023 11: 21 AM CDT 27 weeks gestation of PAP CERVICAL CANCER SCREEN APT Routine 01/16/2023 2:07 PM CDT Pap smear for cervical cancer screening PAP IG LB +HPV APTIMA REFLEX 16,18/45 Routine 01/16/2023 2:07 PM CDT Pap smear for cervical cancer screening from Last 3 Months or Most Recently Relevant to Health Maintenance Results * Sonogram - Complete (07/27/2025 10:28 AM OVEN EQUIPMENT REPAIRER) Only the most recent of2 resultswithin the time period is included. Linked Results Indication ======== Incomplete anatomy History of prior with small for gestational age fetus Hypothyroidism complicating History ====== OB History 8. Para 3 [id number] 1. miscarriage 2. miscarriage 3. live 2016. Gest. age 38 w + 0 d. Weight 3,289 g. Details: Vaginal delivery 4. miscarriage 2016 5. live 2018. Gest. age 39 w + 0 d. Weight 3,175 g. Details: Vaginal delivery 6. miscarriage 10/2022 7. live 08/23/2023. Gest. age 40 w + 0 d. Weight 2,842 g. Details: Vaginal delivery, Birthweight 5th centile Lab Tests Test Date Result NIPT Low risk Maternal Assessment Physical Exam Height 170 cm, 5 ft 7 in. Weight 68 kg, 150 lb. Initial weight 60 kg, 133 lb. BMI 23.49 kg/m . Initial BMI 20.83 kg/m . Weight gain 8 kg, 17 lb Method ====== Transabdominal ultrasound. View: Good view ========= Griffiths . Number of fetuses: 1 Dating ====== Date Details Gest. age JOHANA LMP 02/01/2025 25 w + 1 d 11/08/2025 Previous U/S 04/16/2025 GA, GA 9 w + 4 d 24 w + 1 d 11/15/2025 U/S 07/27/2025 based upon AC, BPD, Femur, HC 24 w + 6 d 11/10/2025 Assigned dating based on ultrasound (GA), selected on 06/29/2025 24 w + 1 d 11/15/2025 General Evaluation Cardiac activity present. FHR 149 bpm. Presentation: breech Placenta: Placental site: anterior Umbilical cord: 3-vessel cord and normal placental cord insertion site were documented previously Amniotic fluid: Amount of AF: normal. MVP 7.2 cm Biometry BPD 63.6 mm 25w 5d 91% Hadlock HC 229.9 mm 25w 0d 65% Hadlock AC 196.7 mm 24w 2d 48% Hadlock Femur 43.8 mm 24w 3d 45% Hadlock Humerus 42.7 mm 25w 4d 84% Tushar HC / AC 1.17 Weight Calculation: EFW 702 g 57% Hadlock EFW (lb,oz) 1 lb 9 oz EFW by Hadlock ([id number]) appropriate Growth Overview Exam date GA BPD (mm) HC (mm) AC (mm) FL (mm) HL (mm) EFW (g) 06/29/2025 20w 1d 50.9 91% 181.2 60% 152 54% 33.1 50% 32.2 77% 354 62% 07/27/2025 24w 1d 63.6 91% 229.9 65% 196.7 48% 43.8 45% 42.7 84% 702 57% Anatomy The following structures appear normal: Face Lips. Nose. Abdomen Stomach. Kidneys. Bladder. The following structures were documented previously: Head / Neck Cranium. Lateral ventricles. Choroid plexus. Midline falx. Cavum septi pellucidi. Cerebellum. Cisterna magna. Thalami. Nuchal fold. Face Profile. Nasal bone. Orbits. Heart / Thorax 4-chamber view. RVOT view. LVOT view. 3-vessel view. 2-ctdlxn-pnuitwj view. Situs. Aortic arch view. Bicaval view. Ductal arch view. Great vessels. Right lung. Left lung. Diaphragm. Abdomen Cord insertion. Bowel. Genitals. Spine Cervical spine. Thoracic spine. Lumbar spine. Sacral spine. Extremities / Skeleton Arms. Hands. Legs. Feet. Impression ========= 1) Griffiths gestation, 24w1d 2) Overall, biometry is consistent with appropriate growth 3) The amniotic fluid volume is within normal limits 4) No abnormalities have been detected on the, now complete, anatomic survey Comment ======== ultrasound alone cannot detect all structural, genetic, or functional , placental, or maternal abnormalities Follow-up ======== Secondary to history of a SGA , follow-up ultrasound in ~4 weeks to reevaluate growth Coding ====== Diagnoses O99.282, E03.9: Other endocrine, nutritional and metabolic diseases complicating , Hypothyroidism Z36.2: Encounter for other screening follow-up Z87.59: Personal history of other complications of Z36.89: Encounter for other specified screening Procedures 98767: US Preg [facility]us [facility] Anatomical Region Laterality Modality Other 07/27/2025 10:2 8 AM OVEN EQUIPMENT REPAIRER Nathaly Severino MD [facility] ORDERABLES Edited Resu lt - Final * (ABNORMAL) IRON + TIBC + FERRITIN (07/09/2025 9:43 AM CDT) TIBC 462(H) 250 - 450 ug/dL [facility] INSURANCE BILL UIBC 409 131 - 425 ug/dL [facility] INSURANCE BILL Iron 53 27 - 159 ug/dL [facility] INSURANCE BILL Iron Saturation 11(L) 15 - 55 % [facility] INSURANCE BILL Ferritin 8(L) 15 - 150 ng/mL [facility] INSURANCE BILL Blood BLOOD SPECIMEN / Unknown 07/09/2025 9:43 AM CDT 07/09/2025 Narrative [facility] INSURANCE BILL - 07/10/2025 11:11 AM CDT Performed at: [address] [place] [id number] Feed Mixer Helper: Philip Mayfield PhD, Phone: [phone] Nathaly Severino MD LAB - CHEMISTRY ORDERABLES Final Result [facility] INSURANCE BILL [address] [place] [address] * (ABNORMAL) CBC WITH DIFFERENTIAL (07/09/2025 9:43 AM CDT) WBC 9.4 3.4 - 10.8 x10E3/uL [facility] INSURANCE BILL RBC 3.67(L) 3.77 - 5.28 x10E6/uL [facility] INSURANCE BILL Hemoglobin 11.0(L) 11.1 - 15.9 g/dL [facility] INSURANCE BILL Hematocrit 33.7(L) 34.0 - 46.6 % [facility] INSURANCE BILL MCV 92 79 - 97 fL [facility] INSURANCE BILL MCH 30.0 26.6 - 33.0 pg [facility] INSURANCE BILL MCHC 32.6 31.5 - 35.7 g/dL [facility] INSURANCE BILL RDW 13.0 11.7 - 15.4 % [facility] INSURANCE BILL Platelet Count 307 150 - 450 x10E3/uL [facility] INSURANCE BILL Granulocytes % 76 Not Estab. % [facility] INSURANCE BILL Lymphocytes % 17 Not Estab. % [facility] INSURANCE BILL Monocytes % 6 Not Estab. % [facility] INSURANCE BILL Eosinophils % 0 Not Estab. % [facility] INSURANCE BILL Basophils % 1 Not Estab. % [facility] INSURANCE BILL Granulocytes Absolute 7.1(H) 1.4 - 7.0 x10E3/uL [facility] INSURANCE BILL Lymphocytes Absolute 1.6 0.7 - 3.1 x10E3/uL [facility] INSURANCE BILL Monocytes Absolute 0.6 0.1 - 0.9 x10E3/uL [facility] INSURANCE BILL Eosinophils Absolute 0.0 0.0 - 0.4 x10E3/uL [facility] INSURANCE BILL Basophils Absolute 0.1 0.0 - 0.2 x10E3/uL [facility] INSURANCE BILL Immature Granulocytes 0 Not Estab. % [facility] INSURANCE BILL Immature Granulocytes Absolute 0.0 0.0 - 0.1 x10E3/uL [facility] INSURANCE BILL Blood BLOOD SPECIMEN / Unknown 07/09/2025 9:43 AM CDT 07/09/2025 Narrative [facility] INSURANCE BILL - 07/10/2025 6:09 AM CDT Performed at: 01 - [address] [id number] Feed Mixer Helper: Philip Mayfield PhD, Phone: [phone] us Nathaly Severino MD LAB - HEMATOLOGY ORDERABLES Final Result [facility] INSURANCE BILL [address] [place] [address] * TSH HI LOW REFLEX FREE T4 (07/09/2025 9:42 AM CDT) Pathologist [facility] TSH 2.950 0.450 - 4.500 uIU/mL [facility] INSURANCE BILL Blood BLOOD SPECIMEN / Unknown 07/09/2025 9:42 AM CDT 07/09/2025 Narrative [facility] INSURANCE BILL - 07/10/2025 8:12 AM CDT Performed at: 01 - [facility] [address], [place], [place] [id number] Feed Mixer Helper: Philip Mayfield PhD, Phone: [phone] us Nathaly Severino MD LAB - CHEMISTRY ORDERABLES Final Result [facility] INSURANCE BILL [address] [place] [address] * (ABNORMAL) OBSTETRIC PANEL RFLX CONFIRM (W CT/GC/UA) (04/16/2025 3:14 PM CDT) Hepatitis B Virus Surface Antigen Negative Negative [facility] INSURANCE BILL Hepatitis C Antibody Non Reactive Non Reactive [facility] INSURANCE BILL RPR Non Reactive Non Reactive [facility] INSURANCE BILL Rubella Antibody 1.06 Immune >0.99 index [facility] INSURANCE BILL Comment: Non-immune <0.90 Equivocal 0.90 - 0.99 Immune >0.99 ABO A [facility] INSURANCE BILL Rh Type Positive [facility] INSURANCE BILL Comment: Please note: Prior records for this patient's ABO / Rh type are not available for additional verification. Antibody Screen Negative Negative [facility] INSURANCE BILL HIV Screen 4th Generation w Reflex Non Reactive Non Reactive [facility] INSURANCE BILL Comment: HIV-1/HIV-2 antibodies and HIV-1 p24 antigen were NOT detected. There is no laboratory evidence of HIV infection. HIV Negative Chlamydia GUEVARA Urine Negative Negative [facility] INSURANCE BILL GC GUEVARA Urine Negative Negative [facility] INSURANCE BILL WBC 8.6 3.4 - 10.8 x10E3/uL [facility] INSURANCE BILL RBC 4.32 3.77 - 5.28 x10E6/uL [facility] INSURANCE BILL Hemoglobin 12.0 11.1 - 15.9 g/dL [facility] INSURANCE BILL Hematocrit 37.7 34.0 - 46.6 % [facility] INSURANCE BILL MCV 87 79 - 97 fL [facility] INSURANCE BILL MCH 27.8 26.6 - 33.0 pg [facility] INSURANCE BILL MCHC 31.8 31.5 - 35.7 g/dL [facility] INSURANCE BILL RDW 13.5 11.7 - 15.4 % [facility] INSURANCE BILL Platelet Count 343 150 - 450 x10E3/uL [facility] INSURANCE BILL Granulocytes % 68 Not Estab. % [facility] INSURANCE BILL Lymphocytes % 23 Not Estab. % [facility] INSURANCE BILL Monocytes % 7 Not Estab. % [facility] INSURANCE BILL Eosinophils % 1 Not Estab. % [facility] INSURANCE BILL Basophils % 1 Not Estab. % [facility] INSURANCE BILL Granulocytes Absolute 5.9 1.4 - 7.0 x10E3/uL [facility] INSURANCE BILL Lymphocytes Absolute 1.9 0.7 - 3.1 x10E3/uL [facility] INSURANCE BILL Monocytes Absolute 0.6 0.1 - 0.9 x10E3/uL [facility] INSURANCE BILL Eosinophils Absolute 0.1 0.0 - 0.4 x10E3/uL [facility] INSURANCE BILL Basophils Absolute 0.1 0.0 - 0.2 x10E3/uL [facility] INSURANCE BILL Immature Granulocytes 0 Not Estab. % [facility] INSURANCE BILL Immature Granulocytes Absolute 0.0 0.0 - 0.1 x10E3/uL [facility] INSURANCE BILL Specific [place] UA 1.015 1.005 - 1.030 [facility] INSURANCE BILL pH UA 6.5 5.0 - 7.5 [facility] INSURANCE BILL Color UA Yellow Yellow [facility] INSURANCE BILL Appearance Clear Clear [facility] INSURANCE BILL Leukocyte UA 1+(A) Negative [facility] INSURANCE BILL Protein UA Negative Negative/Tr marc [facility] INSURANCE BILL Glucose UA Negative Negative [facility] INSURANCE BILL Ketone UA Negative Negative [facility] INSURANCE BILL Occult Blood Urine Negative Negative [facility] B[facility] Bilirubin UA Negative Negative [facility] INSURANCE BILL Urobilinogen 0.2 0.2 - 1.0 mg/dL [facility] INSURANCE BILL Nitrite UA Negative Negative [facility] INSURANCE BILL Microscopic Examination Urine See below: [facility] INSURANCE BILL Comment:Microscopic was fernando cated and was performed. Urine Culture with GBS Final report [facility] INSURANCE BILL Comment: Performed at: [address] [id number] Feed Mixer Helper: Philip Mayfield PhD, Phone: [phone] Interpretation Comment [facility] INSURANCE BILL Comment: Not infected with HCV unless early or acute infection is suspected (which may be delayed in an immunocompromised individual), or other evidence exists to indicate HCV infection. Performed at: [facility] [address] [id number] Feed Mixer Helper: Philip Mayfield PhD, Phone: [phone] WBC UA 6-10(A) 0 - 5 /hpf [facility] INSURANCE BILL RBC UA 0-2 0 - 2 /hpf [facility] INSURANCE BILL Epithelial Cells (non renal) 0-10 0 - 10 /hpf [facility] INSURANCE BILL Casts ua None seen None seen /lpf [facility] INSURANCE BILL Bacteria UA Moderate(A) None seen/Few [facility] INSURANCE BILL Comment: Performed at: [address] [id number] Feed Mixer Helper: Philip Mayfield PhD, Phone: [phone] Result 1 No growth [facility] INSURANCE BILL Other MISCELLANEOUS SAMPLE S / Unknown 04/16/2025 3:14 PM CDT 04/16/2025 Comment:UC Narrative [facility] INSURANCE BILL - 04/18/2025 5:09 PM CDT Performed at: [address] [id number] Feed Mixer Helper: Philip Mayfield PhD, Phone: [phone] Performed at: [address] [id number] Feed Mixer Helper: Isabell Mcclellan MD, Phone: [phone] Nathaly Severino MD LAB - CHEMISTRY ORDERABLES Final Result Performing Organization Address City/State/[facility] Co de Phone Number [facility] INSURANCE BILL [address] [place] [address] * CULTURE STREP B (07/26/2023 2:37 PM OVEN EQUIPMENT REPAIRER) [facility] Strep Group B Culture Negative Negative [facility] INSURANCE BILL Comment: Centers for Disease Control and Prevention (CDC) and [place] Congress of Obstetricians and Gynecologists (ACOG) guidelines for prevention of group B streptococcal (GBS) disease specify co-collection of a vaginal and rectal swab specimen to maximize sensitivity of GBS detection. Per the CDC and ACOG, swabbing both the lower vagina and rectum substantially increases the yield of detection compared with sampling the vagina alone. . Penicillin G, ampicillin, or cefazolin are indicated for intrapartum prophylaxis of GBS colonization. Reflex susceptibility testing should be performed prior to use of clindamycin only on GBS isolates from penicillin-allergic women who are considered a high risk for anaphylaxis. Treatment with vancomycin without additional testing is warranted if resistance to clindamycin is noted. Microbiology MISCELLANEOUS SAMPLES / Unknown 07/26/2023 2:37 PM OVEN EQUIPMENT REPAIRER 07/26/2023 Narrative Resulting Agency Comment Lab Testing performed at: [facility] [place] [address] [facility] [id number] us Cindy Burton MD LAB - MICROBIOLOGY ORDERA BLES Final Result Performing Organization Address City/[facility]/ZIP Co de Phone Number [facility] INSURANCE BILL [address] [place] [address] * GLUCOSE CHALLENGE (05/29/2023 11:21 AM CDT) GTT 1Hr 129 70 - 139 mg/dL [facility] ACCOUNT BILL Comment: According to ADA, a glucose threshold of >139 mg/dL after 50-gram load identifies approximately 80% of women with gestational diabetes mellitus, while the sensitivity is further increased to approximately 90% by a threshold of >129 mg/dL. Blood BLOOD SPECIMEN / Unknown 05/29/2023 11:21 AM CDT 05/29/2023 Narrative Resulting Agency Comment Lab Testing performed at: [facility] [place] [address] [facility] [phone] us Cindy Burton MD LAB - CHEMISTRY ORDERABLE S Final Result Performing Organization Address City/[facility]/ZIP Co de Phone Number [facility] ACCOUNT BILL [address] [place] [address] * PAP CERVICAL CANCER SCREEN APT (01/16/2023 2:07 PM CDT) Age Gdln ACOG Testing 30-65 [facility] ACCOUNT BILL PART OF UTERINE CERVIX / Unknown 01/16/2023 2:07 PM CDT 01/16/2023 Narrative [facility] ACCOUNT BILL - 01/23/2023 10:11 AM CDT Source.............Cervix No. of containers..01 ThinPrep Vial Resulting Agency Comment Lab Testing performed at: [facility] [address] [place] [id number] Cindy Burton MD LAB - PATHOLOGY/CYTOLOGY ORDERABLES Final Result [facility] ACCOUNT BILL [address] [place] [address] * PAP IG LB +HPV APTIMA REFLEX 16,18/45 (01/16/2023 2:07 PM CDT) Diagnosis [facility] ACCOUNT BILL Comment: NEGATIVE FOR INTRAEPITHELIAL LESION OR MALIGNANCY. THIS SPECIMEN WAS RESCREENED PART OF OUR SAP PP CONSULTANT PROGRAM. Specimen Adequacy [facility] ACCOUNT BILL Comment:Satisfactory for perry luation. No endocervical component is identified. Clinician Provided ICD10 [facility] ACCOUNT BILL Comment: Z32.00 E03.9 Z12.4 Performed by [facility] ACCOUNT BILL Comment:Citlalli Henderson, Cy totechnologist QC Reviewed by [facility] ACCOUNT BILL Comment:Madison Sow, Cytot echnologist (ASCP) Comment . [facility] ACCOUNT BILL Note [facility] ACCOUNT BILL Comment: The Pap smear is a screening test designed to aid in the detection of premalignant and malignant conditions of the uterine cervix. It is not a diagnostic procedure and should not be used as the sole means of detecting cervical cancer. Both false-positive and false-negative reports do occur. . IGLBP CPT Code Automation [facility] ACCOUNT BILL Comment: This liquid based ThinPrep(R) pap test was screened with the use of an image guided system. Human papillomavirus Aptima Negative Negative [facility] ACCOUNT BILL Comment: This nucleic acid amplification test detects fourteen high-risk HPV types (16,18,31,33,35,39,45,51,52,56,58,59,66,68) without differentiation. HPV Genotype Reflexed [facility] ACCOUNT BILL Comment:Criteria not met, HP V Genotype not performed. 01/16/2023 2:07 PM CDT 01/16/2023 Narrative [facility] ACCOUNT BILL - 01/23/2023 10:11 AM CDT Source.............Cervix No. of containers..01 ThinPrep Vial Resulting Agency Comment Lab Testing performed at: [facility] [address] [place] [id number] Cindy Burton MD LAB - PATHOLOGY/CYTOLOGY ORDERABLES Final Result [facility] ACCOUNT BILL [address] [place] [address] from Last 3 Months or Most Recently Relevant to Health Maintenance Insurance [facility] MEDICAID Advance Directives * Full Code (Latest Code Status on File) Date Activated Date Inactivated Comments 08/22/2023 11:07 PM 08/24/2023 6:22 PM Care Teams Methods Engineer Relationship Specialty Start Date End Date Asha Harris, CIVIL DRAFTER-KONSTANTIN [address] [place] [address] PCP - Attributed-[employer] Medicaid [place] 06/17/22
--- OUTSIDE RECORDS SUMMARY | 2025-08-06 18:15 | XMS_ITS | Clinical Summary ---
Author Organization [facility] Address [address] [place] [address] Phone Care Team Providers Care Fermenter Helper Name Role Phone Provider, Unknown Primary Care Provider Unavaila ble Social History Tobacco Use Types Packs/Day Years Used Date Smoking Tobacco: Never Assessed Comments Unknown Sex and Gender Information Value Date Recorded Sex Assigned at Not on file Legal Sex Female 10:12 AM SHACTOR HELPER Gender Identity Not on file Sexual Orientation Not on file Plan of Treatment Not on file Care Teams Fermenter Helper Relationship Specialty Start Date End Date Provider, Unknown UNKNOWN PCP - General 07/25/16
--- OUTSIDE RECORDS SUMMARY | 2025-08-06 18:15 | XMS_ITS | Clinical Summary ---
Author Organization [facility] Address [address] [place] [address] Care Team Providers Care Canteen Manager Name Role Phone No, Physician Primary Care Provider [phone] Allergies Active Allergy Reactions Criticality Noted Date Comments Penicillins Medications prenat.vits,allei ,lxw-jizq-tujgn ( VITAMIN) tablet take 1 tablet by oral route every day 0 0 6 Active Additional Information Patient not taking.Reported on 07/22/2019 HYDROcodone-marc taminophen (NORCO) 5-325 mg per tabletIndicatio ns:Pain Take 1-2 tablets by mouth every 6 (six) hours as needed for pain Do not exceed 8 tablets/day. 15 tablet 0 Active Active Problems No known active problems Social History Tobacco Use Types Packs/Day Years Used Date Smoking Tobacco: Never Smokeless Tobacco: Never Alcohol Use Standard Drinks/Week Comments Yes 0 (1 standard drink = 0.6 oz pur e alcohol) Personal Safety Answer Date Recorded Getting School Help Needed Not on file 12/01 Comments No Sex and Gender Information Value Date Recorded Sex Assigned at Not on file Legal Sex Female 4:05 AM VASCULAR SPECIALISTS Gender Identity Not on file Sexual Orientation Not on file Last Filed Vital Signs Vital Sign Reading Time Taken Comments Blood Pressure 117/76 07/11/2020 4:27 PM CDT Pulse 66 07/11/2020 4:27 PM CDT Temperature 37.2 C (99 F) 07/11/2020 4:27 PM CDT Respiratory Rate 14 07/11/2020 4:27 PM CDT Oxygen Saturation 100% 07/11/2020 4:27 PM CDT Inhaled Oxygen Concentration - - Weight 63.5 kg (140 lb) 07/11/2020 12:10 PM CDT Height 170.2 cm (5' 7) 07/11/2020 12:10 PM CDT Body Mass Index 21.93 07/11/2020 12:10 PM CDT Plan of Treatment Not on file Insurance [facility] Care Teams Canteen Manager Relationship Specialty Start Date End Date No, Physician PCP - General 07/22/19
--- OUTSIDE RECORDS SUMMARY | 2025-08-06 18:15 | XMS_ITS | Encounter Summary ---
Author Organization [facility] Address [address] [facility] [place] [address] Care Team Providers Care Whizzer Operator Name Role Phone Asha Harris DAX-SHREDDING SPECIALIST Unavailable [phone] Encounter Details Date Type Department Care Team (Late st Contact Info) Description 07/23/2025 Results Follow-Up [facility] - HOUSE FURNISHINGS SUPERVISOR [address] [place] [address], [address] [phone] Nathaly Severino MD [address] [place] [phone] Social History Tobacco Use Types Packs/Day Years [...] Date Recorded Patient Health Questionnaire-2 Score 0 08/07/2023 [place] of Occupat ional Health - Occupational Stress [...] place to sleep or slept in a long-term (including now)? No 08/22/2023 [place] Depression Scale Answer Date Recorded [place] Depression Scale Total 0 08/24/2023 The thought of harming myself has occurred to me . Never 08/24/2023 Estimated Date of Delivery Comme nts Yes 11/15/2025 Based on Ultraso und Sex and Gender Information Value Date Recorded Sex Assigned at Not on file Legal Sex Female 12:55 PM MECHANICAL UNIT REPAIRER Gender Identity Not on file Sexual Orientation Not on file documented as of this encounter Functional Status * Is person deaf or have serious hearing difficulty? Answer Date of Assessment Author No 08/22/2023 11:45 PM MECHANICAL UNIT REPAIRER Merna Patten, Hussein Nurse * Is person blind or have serious difficulty seeing? Answer Date of Assessment Author No 08/22/2023 11:45 PM MECHANICAL UNIT REPAIRER Merna Patten Graduate Nurse * Does person have serious difficulty walking/climbing stairs? Answer Date of Assessment Author No 08/22/2023 11:45 PM MECHANICAL UNIT REPAIRER Merna Patten Graduate Nurse * Does person have difficulty dressing/bathing? Answer Date of Assessment Author No 08/22/2023 11:45 PM MECHANICAL UNIT REPAIRER Merna Patten Graduate Nurse * Does person have difficulty doing errands alone? Answer Date of Assessment Author No 08/22/2023 11:45 PM MECHANICAL UNIT REPAIRER Merna Patten Graduate Nurse documented as of this encounter Mental Status * Does person have difficulty concentrating/remembering/making decisions? Answer Entry Date Author No 08/22/2023 11:45 PM MECHANICAL UNIT REPAIRER Merna Patten Graduate Nurse documented in this encounter Plan of Treatment Upcoming Encounters Date Type Department Care Team (Late st Contact Info) Description 08/14/2025 10:30 AM MECHANICAL UNIT REPAIRER Appointment [facility] [address] [address] Nathaly Severino MD [address] [place] [phone] 09/03/2025 8:30 AM MECHANICAL UNIT REPAIRER OBGYN RADIOLOGY [facility] - HOUSE FURNISHINGS SUPERVISOR [address] [place] [phone] 09/03/2025 9:15 AM MECHANICAL UNIT REPAIRER visit [facility] - HOUSE FURNISHINGS SUPERVISOR [address] [place] [phone] Nathaly Severino MD [address] [place] [phone] Scheduled Orders Name Type Priority Associated Diagnoses Orde r Schedule TSH HI LOW REFLEX FREE T4 Lab Routine Hypothyroidism affecting in second trimester (HCC) Ordered: 07/23/2025 documented as of this encounter Visit Diagnoses Diagnosis Hypothyroidism affecting in second trimester (HCC)- Primary documented in this encounter Care Teams Whizzer Operator Relationship Specialty Start Date End Date Asha Harris, LINER MACHINE OPERATOR HELPER-SHREDDING SPECIALIST [address] [place] [id number] PCP - Attributed-[employer] Medicaid [place] 06/17/22 documented as of this encounter
[2025-08-06 18:40] VITALS: BP 121/80; PULSE 82; RESP 12; O2SAT 97
[2025-08-06 19:43] VITALS: BP 121/80; PULSE 77; RESP 14; O2SAT 100
[2025-08-06] MEDS: SODIUM CHLORIDE 0.9% IV 1,000 ML 999 ML IV CONT (21:09)
--- OUTSIDE RECORDS SUMMARY | 2025-08-06 21:14 | XMS_ITS | Encounter Summary ---
Author Organization [facility] Address [address] [facility] [place] [address] Care Team Providers Care Coal Cutter Name Role Phone Asha Harris DAX-ANNEALING OVEN OPERATOR Unavailable [phone] Encounter Details Date Type Department Care Team (Late st Contact Info) Description 07/23/2025 Results Follow-Up [facility] - HOT SAW HELPER [address] [place] [address], [address] [phone] Nathaly Severino MD [address] [place] [phone] Social History Tobacco Use Types Packs/Day [...] Recorded Patient Health Questionnaire-2 Score 0 08/07/2023 [place] of Occupat ional Health - Occupational Stress [...] place to sleep or slept in a intermediate (including now)? No 08/22/2023 [place] Depression Scale Answer Date Recorded [place] Depression Scale Total 0 08/24/2023 The thought of harming myself has occurred to me . Never 08/24/2023 Estimated Date of Delivery Comme nts Yes 11/15/2025 Based on Ultraso und Sex and Gender Information Value Date Recorded Sex Assigned at Not on file Legal Sex Female 12:55 PM ILLUMINATING ENGINEER Gender Identity Not on file Sexual Orientation Not on file documented as of this encounter Functional Status * Is person deaf or have serious hearing difficulty? Answer Date of Assessment Author No 08/22/2023 11:45 PM ILLUMINATING ENGINEER Merna Patten, Hussein Nurse * Is person blind or have serious difficulty seeing? Answer Date of Assessment Author No 08/22/2023 11:45 PM ILLUMINATING ENGINEER Merna Patten Graduate Nurse * Does person have serious difficulty walking/climbing stairs? Answer Date of Assessment Author No 08/22/2023 11:45 PM ILLUMINATING ENGINEER Merna Patten Graduate Nurse * Does person have difficulty dressing/bathing? Answer Date of Assessment Author No 08/22/2023 11:45 PM ILLUMINATING ENGINEER Merna Patten Graduate Nurse * Does person have difficulty doing errands alone? Answer Date of Assessment Author No 08/22/2023 11:45 PM ILLUMINATING ENGINEER Merna Patten Graduate Nurse documented as of this encounter Mental Status * Does person have difficulty concentrating/remembering/making decisions? Answer Entry Date Author No 08/22/2023 11:45 PM ILLUMINATING ENGINEER Merna Patten Graduate Nurse documented in this encounter Plan of Treatment Upcoming Encounters Date Type Department Care Team (Late st Contact Info) Description 08/14/2025 10:30 AM ILLUMINATING ENGINEER Appointment [facility] [address] [address] Nathaly Severino MD [address] [place] [phone] 09/03/2025 8:30 AM ILLUMINATING ENGINEER OBGYN RADIOLOGY [facility] - HOT SAW HELPER [address] [place] [phone] 09/03/2025 9:15 AM ILLUMINATING ENGINEER visit [facility] - HOT SAW HELPER [address] [place] [phone] Nathaly Severino MD [address] [place] [phone] Scheduled Orders Name Type Priority Associated Diagnoses Orde r Schedule TSH HI LOW REFLEX FREE T4 Lab Routine Hypothyroidism affecting in second trimester (HCC) Ordered: 07/23/2025 documented as of this encounter Visit Diagnoses Diagnosis Hypothyroidism affecting in second trimester (HCC)- Primary documented in this encounter Care Teams Coal Cutter Relationship Specialty Start Date End Date Asha Harris, GAS APPLIANCE INSTALLER-ANNEALING OVEN OPERATOR [address] [place] [phone] PCP - Attributed-[employer] Medicaid [place] 06/17/22 documented as of this encounter
--- OUTSIDE RECORDS SUMMARY | 2025-08-06 21:14 | XMS_ITS | Clinical Summary ---
Author Organization [facility] [place] Address [address] [place] [address] Care Team Providers Care Dramatic Critic Name Role Phone Asha Harris DAX-SOUND RECORDING TECHNICIAN Unavailable [phone] Source Comments [facility],non-owned Affiliates and Associated Physician Practices is amultiple site organization consisting of ambulatory clinics and hospital sitesin [place], [place], [place] and [place]. This disclosure is being madepursuant to the Care Everywhere program and may not contain all information available regarding this patient. Last updated 18.[facility] [place] Allergies Active Allergy Reactions Criticality Noted Date [...] Department Care Team Description 08/06/2025 11:20 AM [facility] Hospital Encounter [facility] [address] [address] Nathaly Severino MD BAIL ATTACHER 08/06/2025 10:00 AM BIOLOGICS SPECIALIST visit [facility] - BAIL ATTACHER [address] [place] [address], [address] [phone] Nathaly Severino MD GA: 25w4d 08/06/2025 Telephone [facility] - BAIL ATTACHER [address] [place] [address], [address] [place] [phone] Nathaly Severino MD Numbness; Weakness Extremity 08/06/2025 Travel 07/27/2025 10:23 AM BIOLOGICS SPECIALIST - 07/27/2025 11:59 PM BIOLOGICS SPECIALIST Hospital [place] [facility] [place] - Maternal [facility] [place] [address] Margoth Mendieta MD Discharge Disposition: Home or Self Care 07/24/2025 Orders Only [facility] - BAIL ATTACHER [address] [place] [address], [address] [place] [phone] Nathaly Severino MD 07/23/2025 Results Follow-Up [facility] BAIL ATTACHER [address] [place] [address], [address] [place] [phone] Nathaly Severino MD 07/09/2025 9:15 AM CDT visit [facility] BAIL ATTACHER [address] [place] [address], [address] [place] [phone] Nathaly Severino MD GA: 21w4d 07/09/2025 Travel 06/29/2025 10:30 AM CDT - 06/29/2025 11:59 PM CDT Hospital Encounter [facility] [place] - Maternal [address] [place] [address] Margoth Mendieta MD Discharge Disposition: Home or Self Care 06/11/2025 11:00 AM CDT visit [facility] BAIL ATTACHER [address] [place] [address], [address] [place] [phone] Nathaly Severino MD GA: 17w4d 06/11/2025 Travel 05/25/2025 Telephone [facility] - BAIL ATTACHER [address] [place] [address], [address] [phone] Nathaly Severino MD [facility] 05/14/2025 9:30 AM CDT visit [facility] - BAIL ATTACHER [address] [place] [address], [address] [place] [phone] Nathaly Severino MD GA: 13w4d 05/14/2025 Travel [...] in a intermediate (including now)? No 08/22/2023 [place] Depression Scale Answer Date Recorded [place] Depression Scale Total 0 08/24/2023 The thought of harming myself has occurred to me . Never 08/24/2023 Estimated Date of Delivery Comme nts Yes 11/15/2025 Based on Ultraso und Sex and Gender Information Value Date Recorded Sex Assigned at Not on file Legal Sex Female 12:55 PM BIOLOGICS SPECIALIST Gender Identity Not on file Sexual Orientation Not on file Last Filed Vital Signs Vital Sign Reading Time Taken Comments Blood Pressure 128/64 08/06/2025 10:06 AM BIOLOGICS SPECIALIST Pulse 76 08/06/2025 12:03 PM BIOLOGICS SPECIALIST Temperature 36.3 C (97.4 F) 08/06/2025 12:03 PM BIOLOGICS SPECIALIST Respiratory Rate 16 08/06/2025 12:03 PM BIOLOGICS SPECIALIST Oxygen Saturation 100% 08/06/2025 12:03 PM BIOLOGICS SPECIALIST Inhaled Oxygen Concentration - - Weight 67.8 kg (149 lb 6.4 oz) 08/06/2025 10:06 AM BIOLOGICS SPECIALIST Height 170.2 cm (5' 7) 04/16/2025 2:17 PM CDT Body Mass Index 23.4 04/16/2025 2:17 PM CDT Plan of Treatment Upcoming Encounters Date Type Department Care Team (Late st Contact Info) Description 08/14/2025 10:30 AM BIOLOGICS SPECIALIST Appointment [facility] [place] [address] [place] [address] Nathaly Severino MD [address] [place] [phone] 09/03/2025 8:30 AM BIOLOGICS SPECIALIST OBGYN RADIOLOGY [facility] - BAIL ATTACHER [address] [place] [address], [address] [place] [phone] 09/03/2025 9:15 AM BIOLOGICS SPECIALIST visit [facility] - BAIL ATTACHER [address] [place] [address], [address] [place] [address] Nathaly Severino MD [address] [place] [address] [address] [place] [address] Health Maintenance Due Date Last [...] - COMPLETE Routine 07/27/2025 1 0:28 AM BIOLOGICS SPECIALIST 24 weeks gestation of ([facility]) Supervision of low-risk first , unspecified trimester ([facility]) Encounter for follow-up ultrasound of anatomy ([facility]) Encounter for ultrasound to assess growth ([facility]) Other specified hypothyroidism IRON + TIBC + FERRITIN Routine 07/09/2025 9:43 AM CDT Iron deficiency CBC W AUTO DIFFERENTIAL Routine 07/09/2025 9:43 AM CDT Iron deficiency TSH HI LOW REFLEX FREE T4 Routine 07/09/2025 9:42 AM CDT Hypothyroidism affecting in second trimester ([facility]) SONOGRAM - COMPLETE Routine 06/29/2025 1 0:29 AM CDT Encounter for supervision of other normal in first trimester ([facility]) OBSTETRIC PANEL RFLX CONFIRM (W CT/GC/UA) Routine 04/16/2025 3:14 PM CDT Encounter for supervision of other normal in first trimester ([facility]) CULTURE STREP B Routine 07/26/2023 2:37 PM BIOLOGICS SPECIALIST 36 weeks gestation of GLUCOSE CHALLENGE Routine [...] * Sonogram - Complete (07/27/2025 10:28 AM BIOLOGICS SPECIALIST) Only the most recent of2 resultswithin the time period is included. Linked Results Indication ======== Incomplete anatomy History of prior with small for gestational age fetus Hypothyroidism complicating History ====== OB History 8. Para 3 [id number] 1. miscarriage 2. miscarriage 3. live 2016. [...] 1 lb 9 oz EFW by Hadlock ([id number]) appropriate Growth Overview Exam date GA BPD [...] view. RVOT view. LVOT view. 3-vessel view. 1-oowfyl-xprpncc view. Situs. Aortic arch view. Bicaval view. [...] Z36.89: Encounter for other specified screening Procedures 33981: US Preg [facility] Anatomical Region Laterality Modality Other 07/27/2025 10:2 8 AM BIOLOGICS SPECIALIST Nathaly Severino MD [facility] ORDERABLES Edited Resu lt - Final [...] - 07/10/2025 11:11 AM CDT Performed at: [address] [place] [id number] Building Cleaning Supervisor: Philip Mayfield PhD, Phone: [phone] Nathaly Severino MD LAB - CHEMISTRY ORDERABLES Final Result [facility] INSURANCE BILL [address] [place] [address] * (ABNORMAL) CBC WITH DIFFERENTIAL (07/09/2025 9:43 [...] 6:09 AM CDT Performed at: 01 - [address] [id number] Building Cleaning Supervisor: Philip Mayfield PhD, Phone: [phone] us Nathaly Severino MD LAB - HEMATOLOGY ORDERABLES Final Result [facility] INSURANCE BILL [address] [place] [address] * TSH HI LOW REFLEX FREE T4 (07/09/2025 9:42 AM CDT) Pathologist [facility] TSH 2.950 0.450 - 4.500 uIU/mL [facility] INSURANCE BILL Blood BLOOD SPECIMEN / Unknown 07/09/2025 9:42 AM CDT 07/09/2025 Narrative [facility] INSURANCE BILL - 07/10/2025 8:12 AM CDT Performed at: 01 - [facility] [address] [facility], [place], [place] [id number] Building Cleaning Supervisor: Philip Mayfield PhD, Phone: [phone] us Nathaly Severino MD LAB - CHEMISTRY ORDERABLES Final Result [facility] INSURANCE BILL [address] [place] [address] * (ABNORMAL) OBSTETRIC PANEL RFLX CONFIRM (W [...] - 0.1 x10E3/uL [facility] INSURANCE BILL Specific [place] UA 1.015 1.005 - 1.030 [facility] INSURANCE [...] report [facility] INSURANCE BILL Comment: Performed at: [address] [id number] Building Cleaning Supervisor: Philip May[place] PhD, Phone: [phone] Interpretation Comment [facility] INSURANCE BILL Comment: Not infected with HCV unless early or acute infection is suspected (which may be delayed in an immunocompromised individual), or other evidence exists to indicate HCV infection. Performed at: [facility] [address] [id number] Building Cleaning Supervisor: Philip [place] PhD, Phone: [phone] WBC UA 6-10(A) 0 - 5 /hpf [facility] INSURANCE BILL RBC UA 0-2 0 - 2 /hpf [facility] INSURANCE BILL Epithelial Cells (non renal) 0-10 0 - 10 /hpf [facility] INSURANCE BILL Casts ua None seen None seen /lpf [facility] INSURANCE BILL Bacteria UA Moderate(A) None seen/Few [facility] INSURANCE BILL Comment: Performed at: [address] [id number] Building Cleaning Supervisor: Philip May[place] PhD, Phone: [phone] Result 1 No growth [facility] INSURANCE BILL Other MISCELLANEOUS SAMPLE S / Unknown 04/16/2025 3:14 PM CDT 04/16/2025 Comment:UC Narrative [facility] INSURANCE BILL - 04/18/2025 5:09 PM CDT Performed at: [address] [id number] Building Cleaning Supervisor: Philip Mayfield PhD, Phone: [phone] Performed at: [address] [id number] Building Cleaning Supervisor: Isabell Mcclellan MD, Phone: [phone] Nathaly Severino MD LAB - CHEMISTRY ORDERABLES Final Result Performing Organization Address City/State/[facility] Co de Phone Number [facility] INSURANCE BILL [address] [place] [address] * CULTURE STREP B (07/26/2023 2:37 PM BIOLOGICS SPECIALIST) [facility] Strep Group B Culture Negative Negative [facility] INSURANCE BILL Comment: Centers for Disease Control and Prevention (CDC) and [place] Congress of Obstetricians and Gynecologists (ACOG) guidelines [...] MISCELLANEOUS SAMPLES / Unknown 07/26/2023 2:37 PM BIOLOGICS SPECIALIST 07/26/2023 Narrative Resulting Agency Comment Lab Testing performed at: [facility] [place] [address] [facility] [phone] us Cindy Burton MD LAB - MICROBIOLOGY ORDERA BLES Final Result Performing Organization Address City/[facility]/ZIP Co de Phone Number [facility] INSURANCE BILL [address] [place] [address] * GLUCOSE CHALLENGE (05/29/2023 11:21 AM CDT) [...] Agency Comment Lab Testing performed at: [facility] [place] [address] [facility] [phone] us Cindy Burton MD LAB - CHEMISTRY ORDERABLE S Final Result Performing Organization Address City/[facility]/ZIP Co de Phone Number [facility] ACCOUNT BILL [address] [place] [address] * PAP CERVICAL CANCER SCREEN APT (01/16/2023 2:07 PM CDT) Age Gdln ACOG Testing 30-65 [facility] ACCOUNT BILL PART OF UTERINE CERVIX / Unknown 01/16/2023 2:07 PM CDT 01/16/2023 Narrative [facility] ACCOUNT BILL - 01/23/2023 10:11 AM CDT Source.............Cervix No. of containers..01 ThinPrep Vial Resulting Agency Comment Lab Testing performed at: [facility] [address] [place] [id number] Cindy Burton MD LAB - PATHOLOGY/CYTOLOGY ORDERABLES Final Result [facility] ACCOUNT BILL [address] [place] [address] * PAP IG LB +HPV APTIMA REFLEX 16,18/45 (01/16/2023 2:07 PM CDT) Diagnosis [facility] ACCOUNT BILL Comment: NEGATIVE FOR INTRAEPITHELIAL LESION OR MALIGNANCY. THIS SPECIMEN WAS RESCREENED PART OF OUR AUTOMOTIVE PARTS CLERK PROGRAM. Specimen Adequacy [facility] ACCOUNT BILL [...] Agency Comment Lab Testing performed at: [facility] [address] [place] [id number] Cindy Burton MD LAB - PATHOLOGY/CYTOLOGY ORDERABLES Final Result [facility] ACCOUNT BILL [address] [place] [address] from Last 3 Months or Most Recently Relevant to Health Maintenance Insurance [facility] MEDICAID Advance Directives * Full Code (Latest Code Status on File) Date Activated Date Inactivated Comments 08/22/2023 11:07 PM 08/24/2023 6:22 PM Care Teams Dramatic Critic Relationship Specialty Start Date End Date Asha Harris, AFTER SCHOOL PROGRAM TEACHER-KONSTANTIN [address] [place] [address] PCP - Attributed-[place] Medicaid [place] 06/17/22
--- OUTSIDE RECORDS SUMMARY | 2025-08-06 21:14 | XMS_ITS | Clinical Summary ---
Author Organization [facility] Address [address] [place] [address] Phone Care Team Providers Care Windshield Technician Name Role Phone Provider, Unknown Primary Care Provider Unavaila ble Social History Tobacco Use Types Packs/Day Years Used Date Smoking Tobacco: Never Assessed Comments Unknown Sex and Gender Information Value Date Recorded Sex Assigned at Not on file Legal Sex Female 10:12 AM PEOPLESOFT DEVELOPER Gender Identity Not on file Sexual Orientation Not on file Plan of Treatment Not on file Care Teams Windshield Technician Relationship Specialty Start Date End Date Provider, Unknown UNKNOWN PCP - General 07/25/16
--- OUTSIDE RECORDS SUMMARY | 2025-08-06 21:14 | XMS_ITS | Clinical Summary ---
Author Organization [facility] Address [address] [place] [address] Care Team Providers Care Design Eng Name Role Phone No, Physician Primary Care Provider [phone] Allergies Active Allergy Reactions Criticality Noted Date Comments Penicillins Medications prenat.vits,allie ,csa-htyc-fmvpo ( VITAMIN) tablet take 1 tablet by [...] on file Legal Sex Female 4:05 AM LAW ENFORCEMENT INSTRUCTOR Gender Identity Not on file Sexual Orientation [...] Plan of Treatment Not on file Insurance [facility] Care Teams Design Eng Relationship Specialty Start Date End Date No, Physician PCP - General 07/22/19
--- OUTSIDE RECORDS SUMMARY | 2025-08-06 21:14 | XMS_ITS | Encounter Summary ---
Author Organization [facility] Address [address] [place] [address] Care Team Providers Care Solar Lab Technician Name Role Phone Asha Harris DIRECTOR INVESTOR RELATIONS-OUTPATIENT PHYSICAL THERAPIST ASSISTANT Unavailable [phone] Reason for Visit * Reason Onset Date Comments Numbness 08/06/2025 Weakness Extremity 08/06/2025 Encounter Details Date Type Department Care Team (Late st Contact Info) Description 08/06/2025 Telephone [facility] Medical [facility] - SUPPLY CHAIN PROGRAM MANAGER [address] [place] [address], [address] [place] [address] Nathaly Severino MD [address] [place] [phone] Numbness; Weakness Extremity Social History Tobacco [...] Recorded Patient Health Questionnaire-2 Score 0 08/06/2025 [facility] of Occupat ional Health - Occupational Stress [...] place to sleep or slept in a jail (including now)? No 08/22/2023 [place] Depression Scale Answer Date Recorded [place] Depression Scale Total 0 08/24/2023 The thought of harming myself has occurred to me . Never 08/24/2023 Estimated Date of Delivery Comme nts Yes 11/15/2025 Based on Ultraso und Sex and Gender Information Value Date Recorded Sex Assigned at Not on file Legal Sex Female 12:55 PM SLUSHER OPERATOR Gender Identity Not on file Sexual Orientation Not on file documented as of this encounter Functional Status * Is person deaf or have serious hearing difficulty? Answer Date of Assessment Author No 08/22/2023 11:45 PM SLUSHER OPERATOR Merna Patten, Graduate Nurse * Is person [...] of Assessment Author No 08/22/2023 11:45 PM SLUSHER OPERATOR Merna Patten Graduate Nurse * Over the [...] Instructed to go to hospital for evaluation. HER OPERATOR documented in this encounter Plan of Treatment Upcoming Encounters Date Type Department Care Team (Late st Contact Info) Description 08/14/2025 10:30 AM SLUSHER OPERATOR Appointment [facility] [address] [address] Nathaly Severino MD [address] [place] [address] 09/03/2025 8:30 AM SLUSHER OPERATOR OBGYN RADIOLOGY [facility] - SUPPLY CHAIN PROGRAM MANAGER [address] [place] [address], [address] [place] [phone] 09/03/2025 9:15 AM SLUSHER OPERATOR visit [facility] - SUPPLY CHAIN PROGRAM MANAGER [address] [place] [address], [address] [address] Nathaly Severino MD [address] [place] [address] [address] documented as of this encounter Visit Diagnoses Not on filedocumented in this encounter Care Teams Solar Lab Technician Relationship Specialty Start Date End Date Asha Harris APRN-OUTPATIENT PHYSICAL THERAPIST ASSISTANT [address] [place] [address] PCP - Attributed-[employer] Medicaid [place] 06/17/22 documented as of this encounter
--- OUTSIDE RECORDS SUMMARY | 2025-08-06 21:14 | XMS_ITS | Encounter Summary ---
Author Organization [facility] Address [address] [facility] [place] [address] Care Team Providers Care Sand Caster Name Role Phone Asha Harris TEST DESK TROUBLE LOCATOR-DIRECTOR OF TEACHING AND LEARNING Unavailable [phone] Encounter Details Date Type Department Care Team [...] Recorded Patient Health Questionnaire-2 Score 0 08/06/2025 [facility] [place] of Occupat ional Health - Occupational Stress [...] in a usp (including now)? No 08/22/2023 [place] Depression Scale Answer Date Recorded [place] Depression Scale Total 0 08/24/2023 The thought of harming myself has occurred to me . Never 08/24/2023 Estimated Date of Delivery Comme nts Yes 11/15/2025 Based on Ultraso und Sex and Gender Information Value Date Recorded Sex Assigned at Not on file Legal Sex Female 12:55 PM DIRECTOR DIGITAL ADVERTISING Gender Identity Not on file Sexual Orientation [...] st Contact Info) Description 08/14/2025 10:30 AM DIRECTOR DIGITAL ADVERTISING Appointment [facility] [address] [place] [address] Nathaly Severino MD [address] [place], [place] [phone] 09/03/2025 8:30 AM DIRECTOR DIGITAL ADVERTISING OBGYN RADIOLOGY [facility] - DIESEL ENGINE MECHANIC APPRENTICE [address] [place] [phone] 09/03/2025 9:15 AM DIRECTOR DIGITAL ADVERTISING visit [facility] - DIESEL ENGINE MECHANIC APPRENTICE [address] [place] [phone] Nathaly Severino MD [address] [place] [phone] documented as of this encounter Visit Diagnoses Not on filedocumented in this encounter Care Teams Sand Caster Relationship Specialty Start Date End Date Asha Harris APRN-DIRECTOR OF TEACHING AND LEARNING [address] [place] [address] PCP - Attributed-[employer] Medicaid [place] 10/1/22 documented as of this encounter
[2025-08-06 21:31] VITALS: BP 119/63; PULSE 73; RESP 14; O2SAT 98
[2025-08-06 22:40] VITALS: BP 116/69; PULSE 77; RESP 20; O2SAT 99
== END 2025-08-06 22:42 | disposition home or self-care (01) ==
LOC: ANHED 21:12
PROVIDERS: Physician Assistant
DX: O26.892 Other specified pregnancy related conditions, second trimester (principal); R53.1 Weakness; O99.012 Anemia complicating pregnancy, second trimester; D64.9 Anemia, unspecified; Z3A.25 25 weeks gestation of pregnancy
CPT/HCPCS: 36415; 80053; 82550; 83605; 83735; 85025; 85610; 85730; 93005; 96360; 99283; J7030